=== PATIENT | female | born 1935 | race Caucasian/White ===

== ENCOUNTER 2017-08-16 11:02 | Inpatient (IN) ==
[2017-08-16] MEDS ORDERED: 0.9 % SODIUM CHLORIDE 2,000 ML IV ONE (11:39)
[2017-08-16] MEDS ORDERED: ACETAMINOPHEN 325 MG TABLET PO ONE (11:54)
--- NOTE | 2017-08-16 11:54 | Emergency Department Note ---
Nausea/Vomiting/Diarrhea HPI - General Chief complaint: Nausea/Vomiting/Diarrhea Stated complaint: N/V Time Seen by Provider: 08/16/17 11:08 Source: patient, family Mode of arrival: ambulatory Limitations: no limitations - History of Present Illness HPI Narrative: 82-year-old female presents for poor p.o. intake, dizziness, and vomiting. She has had nausea and vomiting for a while and had an upper endoscopy done on Friday. She thinks the nausea and vomiting is a little bit worse but she has not vomited today. She is also dizzy when she stands up and has fallen 3 times. She does not seem to have hurt herself. She is drinking to ensure drinks a day and 3 bottles of water that she can keep down. She also was having some diarrhea but was started on magnesium and that got better. She only has 1 stool a day that is loose. She is supposed to have a colonoscopy soon. She also had an ultrasound which showed a cyst on her left ovary. She states she has abdominal pain in the epigastric region. She has not had fever chills. Her blood pressure was low of 90/60 at home yet she still took her blood pressure medication for hypertension. She is seen at [facility] and sees Dr. Connors. She states the diarrhea is not worse. She states the dizziness is worse and did not know if she should wait until Friday or come in. 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 No urinary symptoms - Related Data Home Medications Medication Instructions Recorded Confirmed Ergocalciferol (Vitamin D2) 50,000 unit PO WEEKLY 08/16/17 08/16/17 [Vitamin D2] Lisinopril [Zestril] 20 mg PO DAILY 08/16/17 08/16/17 Metoprolol Succinate 25 mg PO DAILY 08/16/17 08/16/17 Omeprazole [PriLOSEC] 20 mg PO DAILY 08/16/17 08/16/17 Spironolactone [Aldactone] 25 mg PO DAILY 08/16/17 08/16/17 amLODIPine [Norvasc] 5 mg PO DAILY 08/16/17 08/16/17 Allergies Allergy/AdvReac Type Severity Reaction Status Date / Time No Known Drug Allergies Allergy Verified 12/02/17 11:03 Review of Systems All systems ED: reviewed and negative except as stated. 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 Absent: conjunctival injection Neck: Present: normal inspection, full ROM Chest: Present: normal inspection, symmetric chest wall rise Respiratory: Present: normal lung sounds bilaterally Cardiovascular: Present: regular rate, normal heart sounds Abdominal: Present: soft, tenderness, normal bowel sounds. Absent: distention, guarding, rebound Abdominal tenderness: Present: epigastrium Extremities: Present: normal inspection, full ROM Neurological: Present: alert, oriented X3 Psychiatric: Present: normal affect, normal mood Skin: Present: warm, dry, intact Course - Reevaluation(s) Reevaluation #1: Blood pressure is low but she is not symptomatic. She is hyponatremic at 118 so we slow down her fluids. She also was hypokalemic with recheck of 2.7 potassium. She will be given 20 mEq p.o. and 20 meq IV. Her brings her medications and it looks like she took 5 mg of amlodipine, 20 mg of lisinopril, 25 mg of metoprolol and 20 mg of her omeprazole this morning. This is likely contributing to her hypotension if she was already having low blood pressures. She is not tachycardic. She complains of headache she was given Tylenol which did not help with the headache we will try Toradol. I do not want to give her something to make her blood pressure lowers such as Dilaudid or morphine Vital Signs Temperature 97.6 F 08/16/17 11:04 Pulse Rate 94 H 08/16/17 11:04 Respiratory Rate 14 08/16/17 11:04 Blood Pressure 91/62 08/16/17 11:04 Pulse Oximetry (%) 100 08/16/17 11:04 Temperature 97.6 F 08/16/17 11:04 Pulse Rate 92 H 08/16/17 12:07 Respiratory Rate 14 08/16/17 11:04 Blood Pressure 110/57 08/16/17 12:07 Pulse Oximetry (%) 99 08/16/17 12:07 Nausea/Vomiting/Diarrhea - Medical Records Medical records reviewed: Yes I reviewed the patient's medical records. CT abdomen pelvis done on 07/14/17 shows complex cyst left ovary, diverticulosis , enteritis, inflammation in the stomach. Pelvic US done 08/13 shows Tubular serpiginous region of cystic abnormality left adnexa. More later there is a large cyst partially imaged AP diameter 3.3cm and a hyperechoic septation EGD shows Query celiac. Gastritis. Duodenal diverticuli. Bacterial overgrowth. - Lab Data Lab results reviewed: Yes I reviewed the patient's lab results. Result diagrams: 08/16/17 11:48 08/16/17 11:48 Lab Results 08/16/17 08/16/17 08/16/17 Range/Units 11:48 11:48 13:07 WBC 12.0 H (4.5-11.0) K/mcL RBC 3.76 L (4.00-5.20) M/mcL Hgb 12.2 (12.0-15.0) g/dL Hct 35.9 L (36.0-48.0) % POC Hct (36.0-48.0) % MCV 95.5 (80.0-100.0) fL MCH 32.5 (26.0-34.0) pg MCHC 34.0 (31.0-36.0) g/dL RDW 13.4 (11.5-14.5) % Plt Count 252 (140-440) K/mcL MPV 7.0 L (7.4-10.4) fL Total Counted 100 Seg Neutrophils % 87 H (38-78) % Band Neutrophils % 7 (0-10) % Lymphocytes % 4 L (15-49) % Monocytes % (Manual) 2 (1-12) % Platelet Estimate Normal (NORMAL) RBC Morphology Normal (NORMAL) POC Sodium (133-145) mmol/L Sodium 118 L* (133-145) mmol/L POC Potassium (3.3-5.1) mmol/L Potassium 3.0 L (3.3-5.1) mmol/L POC Chloride (96-108) mmol/L Chloride 79 L (96-108) mmol/L Carbon Dioxide 23 (22-30) mmol/L POC Total CO2 (22-30) mmol/L Anion Gap 16.0 (8-16) POC BUN (8-23) mg/dl BUN 20 (8-23) mg/dl Creatinine 0.7 (0.6-1.1) mg/dl POC Creatinine (0.6-1.1) mg/dl GFR Calculation 80 Glucose 112 H (70-105) mg/dL POC Glucose (70-105) mg/dL Calcium 7.9 L (8.6-10.4) mg/dl POC WB Ioniz Calcium (1.16-1.32) mmol/L Total Bilirubin 0.9 (0.0-1.0) mg/dL AST 32 (0-37) U/l ALT 20 (0-40) U/l Alkaline Phosphatase 125 H (39-117) U/L Total Protein 5.9 (5.9-8.4) gm/dL Albumin 2.5 L (3.2-5.2) gm/dL Globulin 3.4 (2.2-3.7) gm/dL Albumin/Globulin Ratio 0.7 L (1.0-2.3) Lipase 27 (7-60) U/L Urine Color Yellow Urine Appearance Clear Urine pH 6.0 (5.0-9.0) Ur Specific [place] 1.003 (1.000-1.035) Urine Protein Neg (NEG) mg/dL Urine Glucose (UA) Negative (NEG) mg/dL Urine Ketones Neg (NEG) mg/dL Urine Occult Blood Neg (<0.03) mg/dL Urine Nitrate Neg (NEG) Urine Bilirubin Neg (NEG) mg/dL Urine Urobilinogen Neg (NEG) mg/dL Ur Leukocyte Esterase 25 A (NEG) /uL Urine RBC 0 (0-1) /hpf Urine WBC 7 H (0-4) /hpf Ur Squamous Epith Cells 1 (0-4) /hpf Urine Bacteria Few A (0) /hpf Ur Culture Indicated? Yes 08/16/17 Range/Units 13:09 WBC (4.5-11.0) K/mcL RBC (4.00-5.20) M/mcL Hgb (12.0-15.0) g/dL Hct (36.0-48.0) % POC Hct 34.0 L (36.0-48.0) % MCV (80.0-100.0) fL MCH (26.0-34.0) pg MCHC (31.0-36.0) g/dL RDW (11.5-14.5) % Plt Count (140-440) K/mcL MPV (7.4-10.4) fL Total Counted Seg Neutrophils % (38-78) % Band Neutrophils % (0-10) % Lymphocytes % (15-49) % Monocytes % (Manual) (1-12) % Platelet Estimate (NORMAL) RBC Morphology (NORMAL) POC Sodium 122 L (133-145) mmol/L Sodium (133-145) mmol/L POC Potassium 2.7 L* (3.3-5.1) mmol/L Potassium (3.3-5.1) mmol/L POC Chloride 83 L (96-108) mmol/L Chloride (96-108) mmol/L Carbon Dioxide (22-30) mmol/L POC Total CO2 23 (22-30) mmol/L Anion Gap (8-16) POC BUN 17 (8-23) mg/dl BUN (8-23) mg/dl Creatinine (0.6-1.1) mg/dl POC Creatinine 0.7 (0.6-1.1) mg/dl GFR Calculation Glucose (70-105) mg/dL POC Glucose 92 (70-105) mg/dL Calcium (8.6-10.4) mg/dl POC WB Ioniz Calcium 0.96 L (1.16-1.32) mmol/L Total Bilirubin (0.0-1.0) mg/dL AST (0-37) U/l ALT (0-40) U/l Alkaline Phosphatase (39-117) U/L Total Protein (5.9-8.4) gm/dL Albumin (3.2-5.2) gm/dL Globulin (2.2-3.7) gm/dL Albumin/Globulin Ratio (1.0-2.3) Lipase (7-60) U/L Urine Color Urine Appearance Urine pH (5.0-9.0) Ur Specific [place] (1.000-1.035) Urine Protein (NEG) mg/dL Urine Glucose (UA) (NEG) mg/dL Urine Ketones (NEG) mg/dL Urine Occult Blood (<0.03) mg/dL Urine Nitrate (NEG) Urine Bilirubin (NEG) mg/dL Urine Urobilinogen (NEG) mg/dL Ur Leukocyte Esterase (NEG) /uL Urine RBC (0-1) /hpf Urine WBC (0-4) /hpf Ur Squamous Epith Cells (0-4) /hpf Urine Bacteria (0) /hpf Ur Culture Indicated? - Radiology Data Radiology results reviewed: Yes I reviewed the patient's radiology results. Disposition Pt seen by CUSTOMER SERVICE CORRESPONDENCE CLERK/PA only: No Clinical Impression: Hyponatremia, Hypokalemia, UTI (urinary tract infection), Hypotension Disposition: Xfer As Inpt ([facility]) Condition: Fair Referrals: Emerson Connors MD [Primary Care Provider] -
[2017-08-16 12:15] LABS: Mean Cell Volume 95.5 fL (80.0-100.0); Mean Corpuscular Hemoglobin 32.5 pg (26.0-34.0); Platelet Count 252 K/mcL (140-440); RBC 3.76 M/mcL (4.00-5.20); Red Cell Distribution Width 13.4 % (11.5-14.5)
[2017-08-16] MEDS ORDERED: ONDANSETRON 4 MG/2 ML VIAL IV ONE (12:16)
[2017-08-16] MEDS ORDERED: ONDANSETRON 4 MG/2 ML VIAL ONE (12:22)
[2017-08-16 12:46] LABS: Band Neutrophils % 7 % (0-10); Lymphocytes % 4 % (15-49); Monocytes % (Manual) 2 % (1-12); Platelet Estimate NORMAL (NORMAL); RBC Morphology NORMAL (NORMAL); Segmented Neutrophils % 87 % (38-78)
[2017-08-16 12:51] LABS: ALT/SGPT 20 U/l (0-40); Albumin 2.5 gm/dL (3.2-5.2); Albumin/Globulin Ratio 0.7 (1.0-2.3); Alkaline Phosphatase 125 U/L (39-117); Blood Urea Nitrogen 20 mg/dl (8-23); Lipase 27 U/L (7-60)
[2017-08-16] MEDS ORDERED: POTASSIUM CHLORIDE 20 MEQ TABLET PO ONE (13:15)
[2017-08-16] MEDS ORDERED: POTASSIUM PHOSPHATE 20 MEQ in DEXTROSE 5% IN WATER 250 ML IV ONE (13:27)
[2017-08-16 13:32] LABS: Appearance,Urine CLEAR; Bacteria,Urine FEW /hpf (0); Bilirubin,Urine NEG (NEG); Color,Urine YELLOW; Glucose,Urine (UA) NEGATIVE (NEG); Leukocyte Esterase,Urine 25 /uL (NEG); Nitrate,Urine NEG (NEG); Protein,Urine NEG (NEG); Specific Gravity,Urine 1.003 (1.000-1.035); Urine Blood NEG mg/dL (<0.03); Urine RBC 0 /hpf (0-1); Urine Squamous Epithelial Cell 1 /hpf (0-4); Urine WBC 7 /hpf (0-4); Urobilinogen,Urine NEG (NEG)
[2017-08-16] MEDS ORDERED: 0.9 % SODIUM CHLORIDE 1,000 ML IV SCH (13:45)
[2017-08-16] MEDS: KETOROLAC 30 MG/ML VIAL IV ONE ×2 (14:06→15:34)
[2017-08-16] MEDS ORDERED: cefTRIAXone 1 GM VIAL IV ONE (14:19)
--- NOTE | 2017-08-16 15:04 | XRay Report ---
CLINICAL INFORMATION: Hyponatremia COMPARISON: None. FINDINGS: The heart is borderline enlarged. Mediastinum and pulmonary vasculature are unremarkable. Lungs are clear. No effusions IMPRESSION: No acute disease Interpreted and Authenticated by: Keny Kraus 08/16/17
[2017-08-16] MEDS ORDERED: PHENobarb/HYOSCY/ATROPINE/SCOP 1 DOSE BOTTLE PO ONE (15:09)
--- NOTE | 2017-08-16 15:25 | Internal Med History&Physical ---
Medical - H&P: HPI Patient information: Note initiated : 08/16/17 at 3:21 pm Service Date, if different from initiated Date: [] Patient: Eugenia Barboza 82 y/o F admitted on for N/V. Chief Complaint: [] History of present illness: Ms. Barboza is a 82 year old female who reportedly has recent issues with nausea and vomiting and abdominal discomfort. She underwent an upper endoscopy a few days ago, which found gastritis and bacterial overgrowth. There was a question of possible celiac disease, but biopsy show only active duodenitis and chronic gastritis, negative for H. pylori or signs of celiac disease. She has had nausea and vomiting and dizziness for the last several days, and has had several falls. Her notes that she has been having problems with diarrhea for several months. He says her primary care doctor and her GI doctor have run numerous tests without a definite answer. Over the last several weeks she has also developed abdominal pain and intermittent nausea and vomiting. She had an endoscopy a few days ago, which showed gastritis and duodenitis. Her says she has actually gotten worse since then, and has had progressive weakness, loss of appetite, and has fallen several times due to being weak when she stands up. The patient says she just feels off balance when she stands. Her notes she has been complaining of feeling cold lately which is much worse than usual. She has had some intermittent headaches. She has an occasional cough, which is nonproductive. Otherwise she denies fevers, overt dizziness, new eye or ear symptoms, sore throat, swollen glands, chest pain or palpitations, shortness of breath or wheezing. She reports intermittent lower abdominal discomfort along with the nausea and vomiting. She says she has not had much diarrhea recently. She denies rectal bleeding or dysuria. Her notes that she has had what was described as severe hypertension for many many years. She has been hospitalized for this in the past, and he says specialist to run numerous test but never really sorted out the cause. Says she also has had trouble with hyponatremia for years, and they have never found a definite cause for that either. [facility] her reports she has lost about 30 pounds over the last couple of years. ER evaluation showed initial blood pressure of 80/60, hyponatremia, hypokalemia , leukocytosis, abnormal urinalysis. Past medical history: Hypertension severe gastritis and duodenitis History of reflux esophageal dilation. History of sinus problems History of hyponatremia and hypomagnesemia Past surgical history includes cholecystectomy. Current medications: Norvasc 5 mg daily Vitamin D 50,000 units weekly Lisinopril 20 mg daily Metoprolol 25 mg daily Omeprazole 20 mg daily Spironolactone 25 mg daily Records from an outpatient clinic indicate loperamide 2 mg 2 caps as needed loose stool. Magnesium SR 84 mg 2 tabs daily twice daily Flonase nasal spray 2 sprays each nostril daily Atrovent nasal spray 2 sprays each nostril 3 times daily as needed [place] DM 5-10 mils every 4 hours as needed cough Allergies: No known drug allergies Family history: Other in her 90s and had a history of some GI problems. Father in his 90s but health was unknown. She has half siblings but their health is unknown. Social history: She is and lives with her . Her children live in [facility]. She does not use tobacco or drugs. She does drink alcohol most days, generally 1 glass of wine or one gin and tonic either with dinner or when playing golf. Medical - H&P: Meds Home Medications Medication Instructions Recorded Confirmed Type Ergocalciferol (Vitamin D2) 50,000 unit PO WEEKLY 08/16/17 08/16/17 History [Vitamin D2] Lisinopril [Zestril] 20 mg PO DAILY 08/16/17 08/16/17 History Metoprolol Succinate 25 mg PO DAILY 08/16/17 08/16/17 History Omeprazole [PriLOSEC] 20 mg PO DAILY 08/16/17 08/16/17 History Spironolactone [Aldactone] 25 mg PO DAILY 08/16/17 08/16/17 History amLODIPine [Norvasc] 5 mg PO DAILY 08/16/17 08/16/17 History Allergies Allergy/AdvReac Type Severity Reaction Status Date / Time No Known Drug Allergies Allergy Verified 08/16/17 11:03 Medical - H&P: Exam - Constitutional Vitals: Temp Pulse Resp BP Pulse Ox 97.6 F 92 H 14 110/57 99 08/16/17 11:04 08/16/17 12:07 08/16/17 11:04 08/16/17 12:07 08/16/17 12:07 Blood pressure is ranging from 92-105/54-62 She is an elderly female, lying in bed. She appears fatigued, but is otherwise in no acute distress. Head: Normocephalic and atraumatic. Ears: Canals are clear. Left TM has an old perforation. Right TM is clear. Eyes: PERRLA, EOMI, anicteric. Pharynx: Pharynx is clear, mucosa is normal. Patient has partial upper and lower plates. Teeth are in fair condition. Neck: Is supple, without obvious lymphadenopathy, JVD, thyromegaly, bruits. Cardiac exam: Shows regular rate and rhythm with normal S1 and S2. She is a soft systolic murmur heard at the left lower sternal border, but no rubs or gallops are noted. Lungs: Clear to auscultation, without rales, rhonchi, wheezes. Abdomen: Soft, without obvious masses or tenderness. Bowel sounds are active. There is no guarding or rebound. Extremities: No cyanosis, clubbing, edema. Pulses are intact. Neurologic: Patient is alert and oriented, although she is a little slow to answer questions. Her notes her hearing it has been declining recently. Otherwise her exam is grossly nonfocal. Medical - H&P: Reslt - Labs CBC & Chem 7: 08/16/17 11:48 08/16/17 11:48 Labs: Short CBC 08/16/17 Range/Units 11:48 WBC 12.0 H (4.5-11.0) K/mcL Hgb 12.2 (12.0-15.0) g/dL Hct 35.9 L (36.0-48.0) % Plt Count 252 (140-440) K/mcL BMP 08/16/17 11:48 Sodium 118 L* Potassium 3.0 L Chloride 79 L Carbon Dioxide 23 BUN 20 Creatinine 0.7 Glucose 112 H Calcium 7.9 L Liver Function 08/16/17 Range/Units 11:48 Total Bilirubin 0.9 (0.0-1.0) mg/dL AST 32 (0-37) U/l ALT 20 (0-40) U/l Alkaline Phosphatase 125 H (39-117) U/L Albumin 2.5 L (3.2-5.2) gm/dL Urine 08/16/17 Range/Units 13:07 Urine Color Yellow Urine Appearance Clear Urine pH 6.0 (5.0-9.0) Ur Specific [place] 1.003 (1.000-1.035) Urine Protein Neg (NEG) mg/dL Urine Glucose (UA) Negative (NEG) mg/dL August 16: Urinalysis shows pH of 6, 25 leukocyte esterase, 7 white blood cells, few bacteria. Culture is pending. Lactic acid: Is normal at 0.7 Chest x-ray: FINDINGS: The heart is borderline enlarged. Mediastinum and pulmonary vasculature are unremarkable. Lungs are clear. No effusions.IMPRESSION: No acute disease CT abdomen pelvis done on 07/14/17 shows complex cyst left ovary, diverticulosis , enteritis, inflammation in the stomach. Pelvic US done 08/13 shows Tubular serpiginous region of cystic abnormality left adnexa. More later there is a large cyst partially imaged AP diameter 3.3cm and a hyperechoic septation EGD shows Query celiac. Gastritis. Duodenal diverticuli. Bacterial overgrowth. Medical - H&P: A/P (1) Dehydration Current visit: Yes Status: Acute (2) Nausea and vomiting in adult Current visit: Yes Status: Acute (3) Pyuria Current visit: Yes Status: Acute (4) Hypotension Current visit: Yes Status: Acute (5) Gastritis and duodenitis Current visit: Yes Status: Chronic (6) Hyponatremia Current visit: Yes Status: Acute (7) Hypokalemia Current visit: Yes Status: Acute - Narrative A/P Narrative: #1. Cardiac. Patient presents with dizziness, falls, hypotension, electrolyte abnormalities. It would appear that her hypotension is at least partly due to her blood pressure medications, in the setting of ongoing nausea and vomiting and dehydration. -Admit to telemetry for closer monitoring. -IV fluids, correct electrolytes. Hypertension. Currently hypotensive, hold blood pressure medications for now. Test with the patient and her that if she is having ongoing diarrhea, weight loss, poor p.o. intake, she probably should not be taking all of her blood pressure medications. I advised her to try checking her blood pressure prior to taking her morning meds, and then at least get the diuretic if her blood pressure is low, or call her regular doctor for advice. 2. GI. She has ongoing GI symptoms. She is under the care of Dr. Green as an outpatient. EGD showed both gastritis and duodenitis. -Change oral to IV PPI. 3. Endocrine. Patient presents with hyponatremia, hypokalemia, hypochloremia, all possibly due to medications and ongoing vomiting issues. -Check spot urine sodium. Sounds like the hyponatremia is at least to some degree chronic. -IV fluids. 4. CODE STATUS: Code. will act as her POA. 5. DVT prophylaxis: Subcu heparin. #6. Infectious disease. Urinalysis is mildly abnormal. Cover with Rocephin for possible UTI pending cultures. Today's visit took approximately 60 minutes, to review her case with the ER MD, review her test results, interview and examine her, review plan of care with the patient and her , and write orders.
[2017-08-16] MEDS ORDERED: ONDANSETRON 4 MG/2 ML VIAL IV PRN (17:02)
[2017-08-16] MEDS ORDERED: ALBUTEROL SULFATE 2.5 MG/3 ML NEBULIZER NEB PRN (17:02)
[2017-08-16] MEDS ORDERED: MAGNESIUM HYDROXIDE 30 ML ORAL.SUSP PO PRN (17:02)
[2017-08-16] MEDS ORDERED: DOCUSATE SODIUM 100 MG CAPSULE PO PRN (17:02)
[2017-08-16] MEDS: [UNRECOGNIZED DRUG - OTHER] IV SCH (18:58)
[2017-08-16] MEDS: POTASSIUM CHLORIDE IV SCH (18:58)
[2017-08-16] MEDS: DEXTROSE 5% IV SCH (18:58)
[2017-08-16] MEDS ORDERED: POTASSIUM CHLORIDE 20 MEQ/10 ML VIAL IV ONE (19:02)
[2017-08-16] MEDS: PANTOPRAZOLE 40 MG VIAL IV SCH (19:02)
[2017-08-16 19:36] LABS: Ionized Calcium 0.94 mmol/L (1.16-1.32)
[2017-08-16 19:47] LABS: Blood Urea Nitrogen 17 mg/dl (8-23)
[2017-08-16] MEDS: HEPARIN 5,000 UNIT/ML VIAL SQ SCH (20:50)
[2017-08-16] MEDS: ACETAMINOPHEN 325 MG TABLET PO PRN (20:53)
[2017-08-16] MEDS ORDERED: LORazepam 0.5 MG TABLET PO PRN (21:40)
[2017-08-16] MEDS ORDERED: LORazepam 0.5 MG TABLET ONE (22:03)
[2017-08-17] MEDS: POTASSIUM CHLORIDE IV SCH ×4 (02:53→21:14)
[2017-08-17] MEDS: DEXTROSE 5% IV SCH ×4 (02:53→21:14)
[2017-08-17] MEDS: [UNRECOGNIZED DRUG - OTHER] IV SCH ×4 (02:53→21:14)
[2017-08-17] MEDS ORDERED: POTASSIUM CHLORIDE 20 MEQ/10 ML VIAL IV ONE (02:54)
[2017-08-17 06:34] LABS: Basophils # (Auto) 0 K/mcL (0.0-0.3); Basophils % (Auto) 0 % (0.0-2.0); Eosinophils # (Auto) 0 K/mcL (0.0-0.7); Eosinophils % (Auto) 0 % (0.0-7.0); Granulocytes % (Auto) 93.6 % (38.0-78.0); Lymphocytes # (Auto) 0.2 K/mcL (1.5-4.8); Lymphocytes % (Auto) 1.8 % (15.5-49.0); Mean Cell Volume 95.1 fL (80.0-100.0); Mean Corpuscular HGB Conc 33.9 g/dL (31.0-36.0); Mean Corpuscular Hemoglobin 32.3 pg (26.0-34.0); Monocytes # (Auto) 0.4 K/mcL (0.1-0.9); Monocytes % (Auto) 4.6 % (1.0-12.0); Platelet Count 209 K/mcL (140-440); RBC 2.95 M/mcL (4.00-5.20); Red Cell Distribution Width 14.2 % (11.5-14.5)
[2017-08-17 06:49] LABS: ALT/SGPT 13 U/l (0-40); Albumin 1.9 gm/dL (3.2-5.2); Albumin/Globulin Ratio 0.8 (1.0-2.3); Alkaline Phosphatase 106 U/L (39-117); Bilirubin,Direct < 0.2 mg/dL (0.0-0.3); Blood Urea Nitrogen 15 mg/dl (8-23); Gamma Glutamyl Transpeptidase 46 U/L (5-36); Magnesium 1.2 mg/dL (1.6-2.5); Uric Acid 2.8 mg/dL (2.5-8.0)
[2017-08-17] MEDS ORDERED: MAGNESIUM SULFATE 32.48 MEQ in DEXTROSE 5% IN WATER 100 ML IV ONE (07:42)
[2017-08-17] MEDS ORDERED: METOPROLOL SUCCINATE 25 MG TAB.XL.24H PO SCH (09:00)
[2017-08-17] MEDS: cefTRIAXone 1 GM VIAL IV SCH (09:09)
[2017-08-17] MEDS: PANTOPRAZOLE 40 MG VIAL IV SCH ×2 (09:09→17:58)
[2017-08-17] MEDS: CALCIUM W/VIT D3 500 MG TABLET PO SCH ×2 (09:10→19:37)
[2017-08-17] MEDS: HEPARIN 5,000 UNIT/ML VIAL SQ SCH ×2 (09:10→19:37)
[2017-08-17] MEDS: METOPROLOL SUCCINATE 25 MG TAB.XL.24H PO SCH (09:10)
[2017-08-17 11:17] LABS: Vitamin D 25 Hydroxy 25.46 ng/mL (>=30)
--- NOTE | 2017-08-17 11:31 | Internal Med Progress Note ---
Medical - PN: Subj Patient information: Note initiated : 08/17/17 at 11:31 am Service Date, if different from initiated Date: [] Patient: Eugenia Barboza 82 y/o F admitted on 08/16/17 for N/V. Chief Complaint: [] Interval history: August 16, 2017: History of present illness: Ms. Barboza is a 82 year old female who reportedly has recent issues with nausea and vomiting and abdominal discomfort. She underwent an upper endoscopy a few days ago, which found gastritis and bacterial overgrowth. There was a question of possible celiac disease, but biopsy show only active duodenitis and chronic gastritis, negative for H. pylori or signs of celiac disease. She has had nausea and vomiting and dizziness for the last several days, and has had several falls. Her notes that she has been having problems with diarrhea for several months. He says her primary care doctor and her GI doctor have run numerous tests without a definite answer. Over the last several weeks she has also developed abdominal pain and intermittent nausea and vomiting. She had an endoscopy a few days ago, which showed gastritis and duodenitis. Her says she has actually gotten worse since then, and has had progressive weakness, loss of appetite, and has fallen several times due to being weak when she stands up. The patient says she just feels off balance when she stands. Her notes she has been complaining of feeling cold lately which is much worse than usual. She has had some intermittent headaches. She has an occasional cough, which is nonproductive. Otherwise she denies fevers, overt dizziness, new eye or ear symptoms, sore throat, swollen glands, chest pain or palpitations, shortness of breath or wheezing. She reports intermittent lower abdominal discomfort along with the nausea and vomiting. She says she has not had much diarrhea recently. She denies rectal bleeding or dysuria. Her notes that she has had what was described as severe hypertension for many many years. She has been hospitalized for this in the past, and he says specialist to run numerous test but never really sorted out the cause. Says she also has had trouble with hyponatremia for years, and they have never found a definite cause for that either. [place] her reports she has lost about 30 pounds over the last couple of years. ER evaluation showed initial blood pressure of 80/60, hyponatremia, hypokalemia , leukocytosis, abnormal urinalysis. August 3: Overnight, the patient remained fairly stable. Her blood pressure continues to run rather low. She reports she still quite fatigued, and still has lower abdominal discomfort, but these are symptoms that have been going on for quite some time. She did sit up in a chair today without significant dizziness. She otherwise denies fever chills, headaches or dizziness, chest pain or palpitations, shortness of breath, nausea or vomiting, diarrhea or constipation or dysuria. Lab did call today to say 1 bottle of her blood cultures is growing gram- positive cocci. - Constitutional Vitals: Vital Signs Temp Pulse Resp BP Pulse Ox 99.4 F H 85 14 105/56 99 08/17/17 11:29 08/17/17 11:29 08/17/17 11:29 08/17/17 11:29 08/17/17 11:29 Period Temp Pulse Resp BP Sys/Parks Pulse Ox Last 24 Hr 97.2 F-99.4 F 79-97 13-20 72-113/40-66 95-100 Intake and Output 08/16/17 08/17/17 08/17/17 21:59 05:59 13:59 Intake Total 1254.5455 / 1254.5455 1350 / 1350 Output Total 600 / 600 Balance 1254.5455 / 1254.5455 750 / 750 Weight 111 lb 4.8 oz Intake & Output: Intake & Output 08/16/17 08/17/17 08/17/17 21:59 05:59 13:59 Intake Total 1254.5455 / 1254.5455 1350 / 1350 Output Total 600 / 600 Balance 1254.5455 / 1254.5455 750 / 750 Weight 111 lb 4.8 oz Intake: IV 1254.5455 / 1254.5455 990 / 990 Sodium Chloride 0.9% 1,000 ml @ 1000 / 1000 100 mls/hr IV .Q10H [facility] Rx#: [id number] Potassium Chloride 30 Meq In 990 / 990 Dextrose 5%-Ns IV Solution 1, 000 ml @ 125 mls/hr IV .Q8H8M [facility] Rx#:[id number] Potassium Phosphate 20 Meq In 254.5455 / 254.5455 Dextrose 5% in Water 250 ml @ 127.273 mls/hr IV ONCE ONE Rx#: [id number] Oral 360 / 360 Output: Void Amount 275 / 275 Urine/Stool Mix 325 / 325 On exam, the patient is awake and alert. She does appear fatigued. Neck is supple without obvious lymphadenopathy or JVD. Cardiac exam shows regular rate and rhythm. [place] lungs are clear to auscultation. Abdomen is soft, with mild discomfort in the right lower quadrant.. Bowel sounds are active. Extremities show no edema. However, her legs were extremely tender to touch today, for uncertain reasons. She states that just happens sometimes. [place] neurologic exam is grossly nonfocal. Medical - PN: Obj Da - Labs CBC & Chem 7: 08/17/17 03:35 08/17/17 03:35 Labs: Abnormal Lab Results 08/17/17 08/17/17 08/17/17 09:48 03:35 03:35 WBC RBC 2.95 L Hgb 9.5 L Hct 28.1 L POC Hct MPV Gran % 93.6 H Lymph % (Auto) 1.8 L Gran # 8.8 H Lymph # (Auto) 0.2 L Seg Neutrophils % Lymphocytes % POC Sodium Sodium 125 L POC Potassium Potassium POC Chloride Chloride 92 L Carbon Dioxide 21 L Glucose 144 H Calcium 6.8 L POC WB Ioniz Calcium Ionized Calcium [place] Phosphorus 2.2 L Magnesium 1.2 L GGT 46 H Alkaline Phosphatase Total Protein 4.4 L Albumin 1.9 L Albumin/Globulin Ratio 0.8 L Triglycerides 178 H 25-OH Vitamin D Total 25.46 L Ur Leukocyte Esterase Urine WBC Urine Bacteria 08/16/17 08/16/17 08/16/17 18:50 13:09 13:07 WBC RBC Hgb Hct POC Hct 34.0 L MPV Gran % Lymph % (Auto) Gran # Lymph # (Auto) Seg Neutrophils % Lymphocytes % POC Sodium 122 L Sodium 122 L POC Potassium 2.7 L* Potassium POC Chloride 83 L Chloride 87 L Carbon Dioxide 21 L Glucose 109 H Calcium POC WB Ioniz Calcium 0.96 L Ionized Calcium Sonam 0.94 L Phosphorus Magnesium GGT Alkaline Phosphatase Total Protein Albumin Albumin/Globulin Ratio Triglycerides 25-OH Vitamin D Total Ur Leukocyte Esterase 25 A Urine WBC 7 H Urine Bacteria Few A 08/16/17 08/16/17 11:48 11:48 WBC 12.0 H RBC 3.76 L Hgb Hct 35.9 L POC Hct MPV 7.0 L Gran % Lymph % (Auto) Gran # Lymph # (Auto) Seg Neutrophils % 87 H Lymphocytes % 4 L POC Sodium Sodium 118 L* POC Potassium Potassium 3.0 L POC Chloride Chloride 79 L Carbon Dioxide Glucose 112 H Calcium 7.9 L POC WB Ioniz Calcium Ionized Calcium Sonam Phosphorus Magnesium GGT Alkaline Phosphatase 125 H Total Protein Albumin 2.5 L Albumin/Globulin Ratio 0.7 L Triglycerides 25-OH Vitamin D Total Ur Leukocyte Esterase Urine WBC Urine Bacteria August 16: Urinalysis shows pH of 6, 25 leukocyte esterase, 7 white blood cells, few bacteria. Culture is pending. Lactic acid: Is normal at 0.7 Chest x-ray: FINDINGS: The heart is borderline enlarged. Mediastinum and pulmonary vasculature are unremarkable. Lungs are clear. No effusions.IMPRESSION: No acute disease CT abdomen pelvis done on 07/14/17 shows complex cyst left ovary, diverticulosis , enteritis, inflammation in the stomach. Pelvic US done 08/13 shows Tubular serpiginous region of cystic abnormality left adnexa. More later there is a large cyst partially imaged AP diameter 3.3cm and a hyperechoic septation EGD shows Query celiac. Gastritis. Duodenal diverticuli. Bacterial overgrowth. Meds: Medications Acetaminophen (Tylenol) 650 mg PO Q6HP PRN PRN Reason: PAIN/FEVER > 101 Last Admin: 08/16/17 20:53 Dose: 650 mg Albuterol Sulfate (Ventolin) 2.5 mg NEB Q4HRT PRN PRN Reason: Shortness Of Breath Or Wheezing Calcium/Vitamin D (Calcium W/Vit D3) 500 mg PO BID [facility] Last Admin: 08/17/17 09:10 Dose: 500 mg Ceftriaxone Sodium (Rocephin) 1 gm IV DAILY [facility] Last Admin: 08/17/17 09:09 Dose: 1 gm Docusate Sodium (Colace) 100 mg PO BID PRN PRN Reason: Constipation Heparin Sodium (Porcine) (Heparin) 5,000 unit SQ Q12 [facility] Last Admin: 08/17/17 09:10 Dose: 5,000 unit Potassium Chloride 30 meq/ (Dextrose/Sodium Chloride) 1,015 mls @ 125 mls/hr IV .Q8H8M [facility] Last Admin: 08/17/17 02:53 Dose: 125 mls/hr Lorazepam (Ativan) 0.5 mg PO HSP PRN PRN Reason: ANXIETY/SEDATION Last Admin: 08/16/17 21:56 Dose: 0.5 mg Magnesium Hydroxide (Milk Of Magnesia) 30 ml PO DAILYP PRN PRN Reason: Constipation Metoprolol Succinate (Toprol Xl) 25 mg PO DAILY [facility] Last Admin: 08/17/17 09:10 Dose: Not Given Ondansetron HCl (Zofran) 4 mg IV Q4HP PRN PRN Reason: Nausea And Vomiting Pantoprazole Sodium (Protonix) 40 mg IV BIDAC [facility] Last Admin: 08/17/17 09:09 Dose: 40 mg Potassium/Phosphorus/Sodium (Neutra Phos) 2 packet PO QNOON [facility] Medical - PN: A/P - Time Spent With Patient Total time spent is greater than 50% in coordination of care (as documented) at patient's floor/unit and/or counseling patient: 25 - 35 minutes (1) Dehydration Status: Acute Current Visit: Yes (2) Nausea and vomiting in adult Status: Acute Current Visit: Yes (3) Pyuria Status: Acute Current Visit: Yes (4) Hypotension Status: Acute Current Visit: Yes (5) Gastritis and duodenitis Status: Chronic Current Visit: Yes (6) Hyponatremia Status: Acute Current Visit: Yes (7) Hypokalemia Status: Acute Current Visit: Yes - Narrative A/P Narrative: #1. Cardiac. -Patient presents with dizziness, falls, hypotension, electrolyte abnormalities. It would appear that her hypotension is at least partly due to her blood pressure medications, in the setting of ongoing nausea and vomiting and dehydration. She continues on IV fluids, but blood pressure remains fairly low. I expect she is chronically dehydrated. We will need to replace sodium, calcium, phosphorus, magnesium. -Hypertension. Currently hypotensive, hold blood pressure medications for now. Test with the patient and her that if she is having ongoing diarrhea, weight loss, poor p.o. intake, she probably should not be taking all of her blood pressure medications. I advised her to try checking her blood pressure prior to taking her morning meds, and then at least get the diuretic if her blood pressure is low, or call her regular doctor for advice. 2. GI. She has ongoing GI symptoms. She is under the care of Dr. Green as an outpatient. EGD showed both gastritis and duodenitis. -Change oral to IV PPI. -Hemoglobin is lower today, and her baseline appears closer to 10.5. She reports that Dr. Green plans on doing a colonoscopy soon as well. It is unclear if she could have a subacute GI bleed, or if this is more a chronic nutritional issue. [place] all stools. Continue to monitor. -Nutrition consult. 3. Endocrine. Patient presents with hyponatremia, hypokalemia, hypochloremia, all possibly due to medications and ongoing vomiting issues. -Urine sodium was low, and hyponatremia is improving with IV fluids. Continue same. -Replace electrolytes and minerals as indicated. -Vitamin D is borderline low. Replace calcium and vitamin D orally. 4. CODE STATUS: Code. will act as her POA. 5. DVT prophylaxis: Subcu heparin. #6. Infectious disease. Urinalysis is mildly abnormal. Cover with Rocephin for possible UTI pending cultures. -One bottle of blood cultures is positive, and we will await ID to see whether or not this appears to be a contaminant. She has only a low-grade fever, and white blood cell count is back to normal. It might be worthwhile getting an echocardiogram given her relative hypotension and to look for signs of vegetations. Medical - PN: Qual - VTE Deep Vein Thrombosis/Pulmonary Embolism Present on Admission: No
[2017-08-17] MEDS: NEUTRA PHOS 1 PACKET PO SCH (13:27)
[2017-08-17] MEDS: ACETAMINOPHEN 325 MG TABLET PO PRN (15:52)
[2017-08-17] MEDS ORDERED: VANCOMYCIN PER PHARMACY IV ONE (21:13)
[2017-08-17] MEDS ORDERED: VANCOMYCIN 1,000 MG in 0.9 % SODIUM CHLORIDE 250 ML IV ONE (21:45)
[2017-08-17] MEDS ORDERED: VANCOMYCIN 750 MG in 0.9 % SODIUM CHLORIDE 250 ML IV ONE (22:00)
[2017-08-17] MEDS ORDERED: VANCOMYCIN 500 MG VIAL ONE (22:10)
[2017-08-18] MEDS: POTASSIUM CHLORIDE IV SCH ×3 (03:01→16:49)
[2017-08-18] MEDS: [UNRECOGNIZED DRUG - OTHER] IV SCH ×3 (03:01→16:49)
[2017-08-18] MEDS: DEXTROSE 5% IV SCH ×3 (03:01→16:49)
[2017-08-18 04:59] LABS: Basophils # (Auto) 0 K/mcL (0.0-0.3); Basophils % (Auto) 0 % (0.0-2.0); Eosinophils # (Auto) 0.1 K/mcL (0.0-0.7); Granulocytes % (Auto) 87.1 % (38.0-78.0); Lymphocytes # (Auto) 0.5 K/mcL (1.5-4.8); Lymphocytes % (Auto) 6.3 % (15.5-49.0); Mean Cell Volume 96.9 fL (80.0-100.0); Mean Corpuscular HGB Conc 33.6 g/dL (31.0-36.0); Mean Corpuscular Hemoglobin 32.5 pg (26.0-34.0); Monocytes # (Auto) 0.4 K/mcL (0.1-0.9); Monocytes % (Auto) 5.6 % (1.0-12.0); Platelet Count 252 K/mcL (140-440); RBC 2.95 M/mcL (4.00-5.20); Red Cell Distribution Width 13.8 % (11.5-14.5)
[2017-08-18 05:05] LABS: ALT/SGPT 13 U/l (0-40); Albumin 1.8 gm/dL (3.2-5.2); Albumin/Globulin Ratio 0.7 (1.0-2.3); Alkaline Phosphatase 95 U/L (39-117); Bilirubin,Direct < 0.2 mg/dL (0.0-0.3); Blood Urea Nitrogen 5 mg/dl (8-23); Gamma Glutamyl Transpeptidase 44 U/L (5-36); Magnesium 2.1 mg/dL (1.6-2.5)
[2017-08-18] MEDS ORDERED: VANCOMYCIN PER PHARMACY IV SCH (06:45)
[2017-08-18] MEDS: PANTOPRAZOLE 40 MG VIAL IV SCH ×2 (07:07→16:40)
[2017-08-18] MEDS: cefTRIAXone 1 GM VIAL IV SCH (10:02)
[2017-08-18] MEDS: CALCIUM W/VIT D3 500 MG TABLET PO SCH ×2 (10:02→20:48)
[2017-08-18] MEDS: VITAMIN D3 1,000 UNIT TABLET PO SCH ×2 (10:02→20:48)
[2017-08-18] MEDS: HEPARIN 5,000 UNIT/ML VIAL SQ SCH ×2 (10:02→20:47)
[2017-08-18] MEDS: METOPROLOL SUCCINATE 25 MG TAB.XL.24H PO SCH (10:04)
--- NOTE | 2017-08-18 10:24 | Internal Med Progress Note ---
Medical - PN: Subj Patient information: Note initiated : 08/18/17 at 10:24 am Service Date, if different from initiated Date: [] Patient: Eugenia Barboza 82 y/o F admitted on 08/16/17 for N/V. Chief Complaint: [] Interval history: August 16, 2017: History of present illness: Ms. Barboza is a 82 year old female who reportedly has recent issues with nausea and vomiting and abdominal discomfort. She underwent an upper endoscopy a few days ago, which found gastritis and bacterial overgrowth. There was a question of possible celiac disease, but biopsy show only active duodenitis and chronic gastritis, negative for H. pylori or signs of celiac disease. She has had nausea and vomiting and dizziness for the last several days, and has had several falls. Her notes that she has been having problems with diarrhea for several months. He says her primary care doctor and her GI doctor have run numerous tests without a definite answer. Over the last several weeks she has also developed abdominal pain and intermittent nausea and vomiting. She had an endoscopy a few days ago, which showed gastritis and duodenitis. Her says she has actually gotten worse since then, and has had progressive weakness, loss of appetite, and has fallen several times due to being weak when she stands up. The patient says she just feels off balance when she stands. Her notes she has been complaining of feeling cold lately which is much worse than usual. She has had some intermittent headaches. She has an occasional cough, which is nonproductive. Otherwise she denies fevers, overt dizziness, new eye or ear symptoms, sore throat, swollen glands, chest pain or palpitations, shortness of breath or wheezing. She reports intermittent lower abdominal discomfort along with the nausea and vomiting. She says she has not had much diarrhea recently. She denies rectal bleeding or dysuria. Her notes that she has had what was described as severe hypertension for many many years. She has been hospitalized for this in the past, and he says specialist to run numerous test but never really sorted out the cause. Says she also has had trouble with hyponatremia for years, and they have never found a definite cause for that either. [place] her reports she has lost about 30 pounds over the last couple of years. ER evaluation showed initial blood pressure of 80/60, hyponatremia, hypokalemia , leukocytosis, abnormal urinalysis. August 17: Overnight, the patient remained fairly stable. Her blood pressure continues to run rather low. She reports she still quite fatigued, and still has lower abdominal discomfort, but these are symptoms that have been going on for quite some time. She did sit up in a chair today without significant dizziness. She otherwise denies fever chills, headaches or dizziness, chest pain or palpitations, shortness of breath, nausea or vomiting, diarrhea or constipation or dysuria. Lab did call today to say 1 bottle of her blood cultures is growing gram- positive cocci. August 18: Today, the patient's blood cultures are growing gram-positive cocci, and gram- negative and gram-positive rods. Urine is growing Klebsiella. T-max was 99.4 last night. White blood cell count returned to normal just on IV Rocephin. Vancomycin was added last night because of the gram positives in her blood. The patient continues to deny fever or significant chills, though she is often cold. She says she is feeling quite a bit better today, and tolerated [place] toast for breakfast. She denies significant sinus symptoms, other than occasional sinus congestion. She does not report toothache or earache or swollen glands. She denies significant cough or shortness of breath. She has not had further nausea or vomiting, and has not had any stool at all today, let alone diarrhea. She denies dysuria. We have been correcting her numerous lab abnormalities with oral calcium and phosphorus replacement, as well as IV magnesium and potassium and sodium. Spironolactone is on hold due to probable severe dehydration, which is likely secondary to chronic diarrhea. 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 The patient reports she has lost 30 pounds over the last year, unintentionally. - Constitutional Vitals: Vital Signs Temp Pulse Resp BP Pulse Ox 98.6 F 80 16 112/67 100 08/18/17 08:00 08/18/17 08:00 08/18/17 08:00 08/18/17 08:00 08/18/17 08:00 Period Temp Pulse Resp BP Sys/Parks Pulse Ox Last 24 Hr 98.2 F-99.4 F 74-102 14-18 103-115/55-67 98-100 Intake and Output 08/17/17 08/18/17 08/18/17 21:59 05:59 13:59 Intake Total 1974 1025 / 1025 Output Total 525 / 525 1150 / 1150 200 / 200 Balance 1450 / 1450 -125 / -125 -200 / -200 Weight 116 lb Intake & Output: Intake & Output 08/17/17 08/18/17 08/18/17 21:59 05:59 13:59 Intake Total 1974 1025 / 1025 Output Total 525 / 525 1150 / 1150 200 / 200 Balance 1450 / 1450 -125 / -125 -200 / -200 Weight 116 lb Intake: IV 1015 / 1015 250 / 250 Potassium Chloride 30 Meq In 1015 / 1015 Dextrose 5%-Ns IV Solution 1, 000 ml @ 125 mls/hr IV .Q8H8M [facility] Rx#:[id number] Oral 960 / 960 775 / 775 Output: Void Amount 525 / 525 1150 / 1150 200 / 200 Other: Meal Lunch Percent of Meal Consumed bites On exam, the patient is awake and alert. She appears brighter today, and more energetic. She did walk in the [place] today with a walker, and says she felt less weak than before. Next line blood pressure has finally come up to 125/63, which her has had was close to her baseline. Neck is supple without obvious lymphadenopathy or JVD. Cardiac exam shows regular rate and rhythm. lungs are clear to auscultation. Abdomen is soft, with mild discomfort in the right lower quadrant.. Bowel sounds are active. Extremities show no edema. neurologic exam is grossly nonfocal. Medical - PN: Obj Da - Labs CBC & Chem 7: 08/18/17 03:46 08/18/17 03:46 Labs: Abnormal Lab Results 08/18/17 08/18/17 08/17/17 03:46 03:46 09:48 WBC RBC 2.95 L Hgb 9.6 L Hct 28.6 L POC Hct MPV 7.2 L Gran % 87.1 H Lymph % (Auto) 6.3 L Gran # Lymph # (Auto) 0.5 L Seg Neutrophils % Lymphocytes % POC Sodium Sodium 128 L POC Potassium Potassium POC Chloride Chloride Carbon Dioxide 19 L BUN 5 L Creatinine 0.5 L Glucose 119 H Uric Acid 2.0 L Calcium 7.0 L POC WB Ioniz Calcium Ionized Calcium Sonam Phosphorus 1.7 L Magnesium GGT 44 H Alkaline Phosphatase Total Protein 4.4 L Albumin 1.8 L Albumin/Globulin Ratio 0.7 L Triglycerides 180 H 25-OH Vitamin D Total 25.46 L Ur Leukocyte Esterase Urine WBC Urine Bacteria 08/17/17 08/17/17 08/16/17 03:35 03:35 18:50 WBC RBC 2.95 L Hgb 9.5 L Hct 28.1 L POC Hct MPV Gran % 93.6 H Lymph % (Auto) 1.8 L Gran # 8.8 H Lymph # (Auto) 0.2 L Seg Neutrophils % Lymphocytes % POC Sodium Sodium 125 L 122 L POC Potassium Potassium POC Chloride Chloride 92 L 87 L Carbon Dioxide 21 L 21 L BUN Creatinine Glucose 144 H 109 H Uric Acid Calcium 6.8 L POC WB Ioniz Calcium Ionized Calcium Sonam 0.94 L Phosphorus 2.2 L Magnesium 1.2 L GGT 46 H Alkaline Phosphatase Total Protein 4.4 L Albumin 1.9 L Albumin/Globulin Ratio 0.8 L Triglycerides 178 H 25-OH Vitamin D Total Ur Leukocyte Esterase Urine WBC Urine Bacteria 08/16/17 08/16/17 08/16/17 13:09 13:07 11:48 WBC RBC Hgb Hct POC Hct 34.0 L MPV Gran % Lymph % (Auto) Gran # Lymph # (Auto) Seg Neutrophils % Lymphocytes % POC Sodium 122 L Sodium 118 L* POC Potassium 2.7 L* Potassium 3.0 L POC Chloride 83 L Chloride 79 L Carbon Dioxide BUN Creatinine Glucose 112 H Uric Acid Calcium 7.9 L POC WB Ioniz Calcium 0.96 L Ionized Calcium Sonam Phosphorus Magnesium GGT Alkaline Phosphatase 125 H Total Protein Albumin 2.5 L Albumin/Globulin Ratio 0.7 L Triglycerides 25-OH Vitamin D Total Ur Leukocyte Esterase 25 A Urine WBC 7 H Urine Bacteria Few A 08/16/17 11:48 WBC 12.0 H RBC 3.76 L Hgb Hct 35.9 L POC Hct MPV 7.0 L Gran % Lymph % (Auto) Gran # Lymph # (Auto) Seg Neutrophils % 87 H Lymphocytes % 4 L POC Sodium Sodium POC Potassium Potassium POC Chloride Chloride Carbon Dioxide BUN Creatinine Glucose Uric Acid Calcium POC WB Ioniz Calcium Ionized Calcium Sonam Phosphorus Magnesium GGT Alkaline Phosphatase Total Protein Albumin Albumin/Globulin Ratio Triglycerides 25-OH Vitamin D Total Ur Leukocyte Esterase Urine WBC Urine Bacteria Ross 4: Echocardiogram: Results are pending. August 17: Blood cultures: One bottle grew coag negative staph, thought to be a contaminant. A gram-positive bacillus and coag-negative bacillus are also growing, ID to follow. I believe a second bottle is growing both gram-negative bacillus and gram- positive bacillus. Lactic acid is normal. Pro-calcitonin is elevated at 3.85, which could be consistent with sepsis. August 16: Urinalysis shows pH of 6, 25 leukocyte esterase, 7 white blood cells, few bacteria. Culture shows 20-30,000 Klebsiella, pansensitive. Lactic acid: Is normal at 0.7 Chest x-ray: FINDINGS: The heart is borderline enlarged. Mediastinum and pulmonary vasculature are unremarkable. Lungs are clear. No effusions.IMPRESSION: No acute disease CT abdomen pelvis done on 07/14/17 shows complex cyst left ovary, diverticulosis , enteritis, inflammation in the stomach. Pelvic US done 08/13 shows Tubular serpiginous region of cystic abnormality left adnexa. More later there is a large cyst partially imaged AP diameter 3.3cm and a hyperechoic septation EGD shows Query celiac. Gastritis. Duodenal diverticuli. Bacterial overgrowth. Meds: Medications Acetaminophen (Tylenol) 650 mg PO Q6HP PRN PRN Reason: PAIN/FEVER > 101 Last Admin: 08/17/17 15:52 Dose: 650 mg Albuterol Sulfate (Ventolin) 2.5 mg NEB Q4HRT PRN PRN Reason: Shortness Of Breath Or Wheezing Calcium/Vitamin D (Calcium W/Vit D3) 500 mg PO BID [facility] Last Admin: 08/18/17 10:02 Dose: 500 mg Ceftriaxone Sodium (Rocephin) 1 gm IV DAILY [facility] Last Admin: 08/18/17 10:02 Dose: 1 gm Docusate Sodium (Colace) 100 mg PO BID PRN PRN Reason: Constipation Heparin Sodium (Porcine) (Heparin) 5,000 unit SQ Q12 [facility] Last Admin: 08/18/17 10:02 Dose: 5,000 unit Potassium Chloride 30 meq/ (Dextrose/Sodium Chloride) 1,015 mls @ 125 mls/hr IV .Q8H8M [facility] Last Admin: 08/18/17 10:04 Dose: Not Given Vancomycin HCl 750 mg/ Sodium (Chloride) 250 mls @ 250 mls/hr IV ONCE ONE Stop: 08/18/17 16:59 Lorazepam (Ativan) 0.5 mg PO HSP PRN PRN Reason: ANXIETY/SEDATION Last Admin: 08/16/17 21:56 Dose: 0.5 mg Magnesium Hydroxide (Milk Of Magnesia) 30 ml PO DAILYP PRN PRN Reason: Constipation Metoprolol Succinate (Toprol Xl) 25 mg PO DAILY [facility] Last Admin: 08/18/17 10:04 Dose: Not Given Ondansetron HCl (Zofran) 4 mg IV Q4HP PRN PRN Reason: Nausea And Vomiting Pantoprazole Sodium (Protonix) 40 mg IV BIDAC [facility] Last Admin: 08/18/17 07:07 Dose: 40 mg Potassium/Phosphorus/Sodium (Neutra Phos) 2 packet PO QNOON [facility] Last Admin: 08/17/17 13:27 Dose: 2 packet Vancomycin HCl (Vancomycin Per Pharmacy) 1 order IV UD [facility] Vitamin D (Vitamin D3) 1,000 unit PO BID [facility] Last Admin: 08/18/17 10:02 Dose: 1,000 unit Medical - PN: A/P - Time Spent With Patient Total time spent is greater than 50% in coordination of care (as documented) at patient's floor/unit and/or counseling patient: 25 - 35 minutes (1) Dehydration Status: Acute Current Visit: Yes (2) Nausea and vomiting in adult Status: Acute Current Visit: Yes (3) Pyuria Status: Acute Current Visit: Yes (4) Hypotension Status: Acute Current Visit: Yes (5) Gastritis and duodenitis Status: Chronic Current Visit: Yes (6) Hyponatremia Status: Acute Current Visit: Yes (7) Hypokalemia Status: Acute Current Visit: Yes - Narrative A/P Narrative: #1. Cardiac. Patient presents with dizziness, falls, hypotension, electrolyte abnormalities. It would appear that her hypotension is at least partly due to her blood pressure medications, in the setting of ongoing nausea and vomiting and dehydration. -She continues on IV fluids, and blood pressure is gradually improving. We have been replacing sodium, calcium, phosphorus, magnesium. Hypertension. -Currently hypotensive, hold blood pressure medications for now. Discussed with the patient and her that if she is having ongoing diarrhea, weight loss, poor p.o. intake, she probably should not be taking all of her blood pressure medications. I advised her to try checking her blood pressure prior to taking her morning meds, and then at least get the diuretic if her blood pressure is low, or call her regular doctor for advice. 2. GI. She has ongoing GI symptoms. She is under the care of Dr. Green as an outpatient. EGD showed both gastritis and duodenitis. -Change oral to IV PPI. -Per GI, she also had duodenal diverticuli with presumed bacterial overgrowth. This may have caused symptoms of chronic steatorrhea. She may be feeling better as the IV antibiotics address this. -Hemoglobin is lower today, and her baseline appears closer to 10.5. She reports that Dr. Green plans on doing a colonoscopy soon as well. It is unclear if she could have a subacute GI bleed, or if this is more a chronic nutritional issue. Guaiac all stools. Continue to monitor. -Nutrition consult. 3. Endocrine. Patient presents with hyponatremia, hypokalemia, hypochloremia, all possibly due to medications and ongoing vomiting issues. -Urine sodium was low, and hyponatremia is improving with IV fluids. Continue same. -Replace electrolytes and minerals as indicated. -Vitamin D is borderline low. Replace calcium and vitamin D orally. 4. CODE STATUS: Code. will act as her POA. 5. DVT prophylaxis: Subcu heparin. #6. Infectious disease. Urinalysis is mildly abnormal. Covered with Rocephin for possible UTI pending cultures. -Today her urine culture is growing only 20,000 pansensitive Klebsiella. However, but cultures are growing 3 different organisms. One appears to be staph epi, which is considered to be a contaminant. She is also growing a gram- positive and gram-negative pete. ID is pending. Source of these organisms is unclear. - She has only a low-grade fever, and white blood cell count is back to normal. Ordered echocardiogram given her relative hypotension and to look for signs of vegetations. Other source for multiple organisms may be the GI tract. Medical - PN: Qual - VTE Deep Vein Thrombosis/Pulmonary Embolism Present on Admission: No
[2017-08-18] MEDS: NEUTRA PHOS 1 PACKET PO SCH (12:00)
--- NOTE | 2017-08-18 13:30 | Internal Medicine Consult Note ---
Medical - CN: HPI - Data of Consult Patient: known to practice within the last 3 years Consult date: 08/18/17 Requesting Physician: Haleigh Arita Primary Care Provider: Emerson Connors Family Provider: mImanuel Pandey - Consult Narrative Reason for consult: Abdominal pain, nausea History of present illness: Ms. Barboza is a 82 year old F whom I recently saw in an outpatient consultation for 9 month history of abdominal pain, 30lbs weight loss and evidence of steatorrhea with abnormal CT revealing thickened gastric folds. She began to feel unwell 2-3 days prior to hospitalization, with nausea, vomiting and dizziness. After falling multiple times, her brought her to the ED where she was found to be hyponatremic with a sodium 118. She tells me she drinks copious amounts of water, but apparently her told hospitalist this was not true. She did not have peritoneal signs on presentation to ER, but for unclear reasons, her blood cultures have grown out both gram negative and positive bacilli. Urine culture grew out klebsiella which could explain the gram negative bacilli. She underwent EGD last week, which showed two duodenal diverticuli. Gastric biopsies negative for Menetriers and small bowel biopsies were negative for celiac or other malabsorption. Since starting ceftriaxone and vancomycin--and with correction of her sodium-- she is feeling dramatically better. In fact, her diarrhea has stopped, indicating bacterial overgrowth is likely the mechanism of her malabsorption. Chest xray showed no evidence of mass. CC: Haleigh Arita All systems: reviewed and no additional remarkable complaints except as stated ( as above.) Medical - CN: PMH Medical history: hypertension Surgical history: cholecystectomy Family history: reviewed and not pertinent Smoking status: Never smoker Alcohol use: other (daily wine) Medical - CN: Meds Home Medications Medication Instructions Recorded Confirmed Type Ergocalciferol (Vitamin D2) 50,000 unit PO WEEKLY 08/16/17 08/16/17 History [Vitamin D2] Lisinopril [Zestril] 20 mg PO DAILY 08/16/17 08/16/17 History Metoprolol Succinate 25 mg PO DAILY 08/16/17 08/16/17 History Omeprazole [PriLOSEC] 20 mg PO DAILY 08/16/17 08/16/17 History Spironolactone [Aldactone] 25 mg PO DAILY 08/16/17 08/16/17 History amLODIPine [Norvasc] 5 mg PO DAILY 08/16/17 08/16/17 History Allergies Allergy/AdvReac Type Severity Reaction Status Date / Time No Known Drug Allergies Allergy Verified 08/16/17 11:03 Medical - CN: Exam - Constitutional Vitals: Temp Pulse Resp BP Pulse Ox 97.9 F 85 16 125/63 100 08/18/17 12:00 08/18/17 12:00 08/18/17 12:00 08/18/17 12:00 08/18/17 08:00 General appearance: average body habitus, cooperative, no acute distress - Head Head exam: Present: atraumatic - Neck Neck exam: Absent: lymphadenopathy, thyromegaly - Respiratory Respiratory exam: Present: normal respiratory exam, CTAB - Cardiovascular Cardiovascular exam: Present: normal rate and rhythm - GI/Abdominal GI/Abdominal exam: Present: normal bowel sounds. Absent: mass, organomegaly, tenderness - Neurological Exam Neurological exam: Present: alert, oriented X3 - Skin Skin exam: Present: dry, warm. Absent: erythema, pallor Medical - CN: Result - Labs CBC & Chem 7: 08/18/17 03:46 08/18/17 03:46 Labs: Short CBC 08/18/17 Range/Units 03:46 WBC 7.7 (4.5-11.0) K/mcL Hgb 9.6 L (12.0-15.0) g/dL Hct 28.6 L (36.0-48.0) % Plt Count 252 (140-440) K/mcL BMP 08/18/17 03:46 Sodium 128 L Potassium 4.8 Chloride 97 Carbon Dioxide 19 L BUN 5 L Creatinine 0.5 L Glucose 119 H Calcium 7.0 L Liver Function 08/18/17 Range/Units 03:46 Total Bilirubin 0.3 (0.0-1.0) mg/dL Direct Bilirubin < 0.2 (0.0-0.3) mg/dL GGT 44 H (5-36) U/L AST 15 (0-37) U/l ALT 13 (0-40) U/l Alkaline Phosphatase 95 (39-117) U/L Albumin 1.8 L (3.2-5.2) gm/dL Medical - CN: A/P (1) Small intestinal bacterial overgrowth Status: Acute Assessment and plan: Secondary to duodenal diverticuli resulting in rather dramatic malabsorption. Unlikely she had a small bowel perforation following EGD given lack of peritoneal findings, so etiology of positive blood cultures unclear. Suspect nausea and dizziness related to hyponatremia. Fluid intake on diuretics should be monitored. She is scheduled for colonoscopy w/ random colon biopsies next week. We may consider postponing given her improvement on antibiotic therapy. She may require repeat courses of low dose antibiotics as she is a risk for recurrent bacterial overgrowth.
[2017-08-18] MEDS ORDERED: VANCOMYCIN 750 MG in 0.9 % SODIUM CHLORIDE 250 ML IV ONE (16:00)
[2017-08-18] MEDS: ACETAMINOPHEN 325 MG TABLET PO PRN (17:36)
[2017-08-18] MEDS: FLUTICASONE PROPIONATE SPRAY.NAS NS PRN (17:36)
[2017-08-19] MEDS: [UNRECOGNIZED DRUG - OTHER] IV SCH (01:57)
[2017-08-19] MEDS: DEXTROSE 5% IV SCH (01:57)
[2017-08-19] MEDS: POTASSIUM CHLORIDE IV SCH (01:57)
[2017-08-19] MEDS ORDERED: POTASSIUM CHLORIDE 20 MEQ/10 ML VIAL IV ONE (02:00)
[2017-08-19 05:02] LABS: Basophils # (Auto) 0 K/mcL (0.0-0.3); Basophils % (Auto) 0.6 % (0.0-2.0); Eosinophils # (Auto) 0.1 K/mcL (0.0-0.7); Eosinophils % (Auto) 1.3 % (0.0-7.0); Granulocytes % (Auto) 82.7 % (38.0-78.0); Lymphocytes # (Auto) 0.6 K/mcL (1.5-4.8); Lymphocytes % (Auto) 9.4 % (15.5-49.0); Mean Cell Volume 94.5 fL (80.0-100.0); Mean Corpuscular HGB Conc 33.8 g/dL (31.0-36.0); Mean Corpuscular Hemoglobin 31.9 pg (26.0-34.0); Monocytes # (Auto) 0.4 K/mcL (0.1-0.9); Platelet Count 311 K/mcL (140-440); RBC 3.01 M/mcL (4.00-5.20); Red Cell Distribution Width 13.5 % (11.5-14.5)
[2017-08-19 05:42] LABS: ALT/SGPT 16 U/l (0-40); Albumin/Globulin Ratio 0.8 (1.0-2.3); Alkaline Phosphatase 94 U/L (39-117); Bilirubin,Direct 0.2 mg/dL (0.0-0.3); Blood Urea Nitrogen 4 mg/dl (8-23); Gamma Glutamyl Transpeptidase 50 U/L (5-36); Magnesium 1.8 mg/dL (1.6-2.5); Uric Acid 1.4 mg/dL (2.5-8.0)
[2017-08-19] MEDS: PANTOPRAZOLE 40 MG VIAL IV SCH ×2 (07:30→16:24)
[2017-08-19] MEDS: HEPARIN 5,000 UNIT/ML VIAL SQ SCH ×2 (08:22→21:00)
[2017-08-19] MEDS: CALCIUM W/VIT D3 500 MG TABLET PO SCH ×2 (08:23→21:00)
[2017-08-19] MEDS: METOPROLOL SUCCINATE 25 MG TAB.XL.24H PO SCH (08:23)
[2017-08-19] MEDS: VITAMIN D3 1,000 UNIT TABLET PO SCH ×2 (08:23→21:00)
[2017-08-19] MEDS: cefTRIAXone 1 GM VIAL IV SCH (08:25)
[2017-08-19] MEDS: POTASSIUM CHLORIDE 10 MEQ in DEXTROSE 5%-NS 1,000 ML IV SCH ×2 (08:30→19:36)
--- NOTE | 2017-08-19 11:00 | Internal Med Progress Note ---
Medical - PN: Subj Patient information: Note initiated : 08/19/17 at 11:00 am Service Date, if different from initiated Date: [] Patient: Eugenia Barboza 82 y/o F admitted on 08/16/17 for N/V, Hyponatremia, Hypokalemia, UTI, Hypotension. Chief Complaint: [] Interval history: August 16, 2017: History of present illness: Ms. Barboza is a 82 year old female who reportedly has recent issues with nausea and vomiting and abdominal discomfort. She underwent an upper endoscopy a few days ago, which found gastritis and bacterial overgrowth. There was a question of possible celiac disease, but biopsy show only active duodenitis and chronic gastritis, negative for H. pylori or signs of celiac disease. She has had nausea and vomiting and dizziness for the last several days, and has had several falls. Her notes that she has been having problems with diarrhea for several months. He says her primary care doctor and her GI doctor have run numerous tests without a definite answer. Over the last several weeks she has also developed abdominal pain and intermittent nausea and vomiting. She had an endoscopy a few days ago, which showed gastritis and duodenitis. Her says she has actually gotten worse since then, and has had progressive weakness, loss of appetite, and has fallen several times due to being weak when she stands up. The patient says she just feels off balance when she stands. Her notes she has been complaining of feeling cold lately which is much worse than usual. She has had some intermittent headaches. She has an occasional cough, which is nonproductive. Otherwise she denies fevers, overt dizziness, new eye or ear symptoms, sore throat, swollen glands, chest pain or palpitations, shortness of breath or wheezing. She reports intermittent lower abdominal discomfort along with the nausea and vomiting. She says she has not had much diarrhea recently. She denies rectal bleeding or dysuria. Her notes that she has had what was described as severe hypertension for many many years. She has been hospitalized for this in the past, and he says specialist to run numerous test but never really sorted out the cause. Says she also has had trouble with hyponatremia for years, and they have never found a definite cause for that either. [place] her reports she has lost about 30 pounds over the last couple of years. ER evaluation showed initial blood pressure of 80/60, hyponatremia, hypokalemia , leukocytosis, abnormal urinalysis. August 17: Overnight, the patient remained fairly stable. Her blood pressure continues to run rather low. She reports she still quite fatigued, and still has lower abdominal discomfort, but these are symptoms that have been going on for quite some time. She did sit up in a chair today without significant dizziness. She otherwise denies fever chills, headaches or dizziness, chest pain or palpitations, shortness of breath, nausea or vomiting, diarrhea or constipation or dysuria. Lab did call today to say 1 bottle of her blood cultures is growing gram- positive cocci. August 18: Today, the patient's blood cultures are growing gram-positive cocci, and gram- negative and gram-positive rods. Urine is growing Klebsiella. T-max was 99.4 last night. White blood cell count returned to normal just on IV Rocephin. Vancomycin was added last night because of the gram positives in her blood. The patient continues to deny fever or significant chills, though she is often cold. She says she is feeling quite a bit better today, and tolerated Azer[place] toast for breakfast. She denies significant sinus symptoms, other than occasional sinus congestion. She does not report toothache or earache or swollen glands. She denies significant cough or shortness of breath. She has not had further nausea or vomiting, and has not had any stool at all today, let alone diarrhea. She denies dysuria. We have been correcting her numerous lab abnormalities with oral calcium and phosphorus replacement, as well as IV magnesium and potassium and sodium. Spironolactone is on hold due to probable severe dehydration, which is likely secondary to chronic diarrhea. 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 The patient reports she has lost 30 pounds over the last year, unintentionally. August 19: Today, the patient says her energy continues to improve. She seems to be tolerating more oral nutrition as well. Her notes her abdominal pain and appetite definitely worsened after her upper endoscopy last week. He is pleased that she is improving. -Dr. Purdy from [facility] called today, to report that her pelvic ultrasound that was done over there did show a complex ovarian mass. They are recommending that she follow-up with [facility] in [place] after discharge, to look into that further. -Otherwise, patient denies fever chills, headaches or dizziness, chest pain or shortness of breath. She continues to have mild lower abdominal discomfort, but thinks it may be better. She denies dysuria. - Constitutional Vitals: Vital Signs Temp Pulse Resp BP Pulse Ox 98.0 F 80 16 124/65 100 08/19/17 08:00 08/19/17 03:40 08/19/17 08:00 08/19/17 08:00 08/19/17 08:00 Period Temp Pulse Resp BP Sys/Parks Pulse Ox Last 24 Hr 97.2 F-98.6 F 80-85 16-16 105-126/58-70 99-100 Intake and Output 08/18/17 08/19/17 08/19/17 21:59 05:59 13:59 Intake Total 840 / 840 1440 / 1440 1119 / 1119 Output Total 950 / 950 1400 / 1400 452 / 452 Balance -110 / -110 40 / 40 667 / 667 Weight 119 lb Intake & Output: Intake & Output 08/18/17 08/19/17 08/19/17 21:59 05:59 13:59 Intake Total 840 / 840 1440 / 1440 1119 / 1119 Output Total 950 / 950 1400 / 1400 452 / 452 Balance -110 / -110 40 / 40 667 / 667 Weight 119 lb Intake: IV 1015 / 1015 819 / 819 Potassium Chloride 30 Meq In 1015 / 1015 819 / 819 Dextrose 5%-Ns IV Solution 1, 000 ml @ 125 mls/hr IV .Q8H8M [facility] Rx#:[id number] Oral 840 / 840 425 / 425 300 / 300 Output: Void Amount 950 / 950 450 / 450 2 / 2 Urine/Stool Mix 950 / 950 450 / 450 Other: Meal Dinner Breakfast Percent of Meal Consumed nausea 75% # Bowel Movements 1 1 On exam, the patient is awake and alert. She appears brighter today, and more energetic.. Neck is supple without obvious lymphadenopathy or JVD. Cardiac exam shows regular rate and rhythm. lungs are clear to auscultation. Abdomen is soft, with mild discomfort in the right lower quadrant.. Bowel sounds are active. Extremities show no edema. neurologic exam is grossly nonfocal. Medical - PN: Obj Da - Labs CBC & Chem 7: 08/19/17 03:35 08/19/17 03:35 Labs: Abnormal Lab Results 08/19/17 08/19/17 08/18/17 03:35 03:35 03:46 WBC RBC 3.01 L Hgb 9.6 L Hct 28.4 L POC Hct MPV 7.2 L Gran % 82.7 H Lymph % (Auto) 9.4 L Gran # Lymph # (Auto) 0.6 L Seg Neutrophils % Lymphocytes % POC Sodium Sodium 128 L 128 L POC Potassium Potassium 5.5 H POC Chloride Chloride Carbon Dioxide 20 L 19 L BUN 4 L 5 L Creatinine 0.4 L 0.5 L Glucose 120 H 119 H Uric Acid 1.4 L 2.0 L Calcium 7.4 L 7.0 L POC WB Ioniz Calcium Ionized Calcium Sonam Phosphorus 2.1 L 1.7 L Magnesium GGT 50 H 44 H Alkaline Phosphatase Total Protein 4.5 L 4.4 L Albumin 2.0 L 1.8 L Albumin/Globulin Ratio 0.8 L 0.7 L Triglycerides 180 H 25-OH Vitamin D Total Ur Leukocyte Esterase Urine WBC Urine Bacteria 08/18/17 08/17/17 08/17/17 03:46 09:48 03:35 WBC RBC 2.95 L Hgb 9.6 L Hct 28.6 L POC Hct MPV 7.2 L Gran % 87.1 H Lymph % (Auto) 6.3 L Gran # Lymph # (Auto) 0.5 L Seg Neutrophils % Lymphocytes % POC Sodium Sodium 125 L POC Potassium Potassium POC Chloride Chloride 92 L Carbon Dioxide 21 L BUN Creatinine Glucose 144 H Uric Acid Calcium 6.8 L POC WB Ioniz Calcium Ionized Calcium Sonam Phosphorus 2.2 L Magnesium 1.2 L GGT 46 H Alkaline Phosphatase Total Protein 4.4 L Albumin 1.9 L Albumin/Globulin Ratio 0.8 L Triglycerides 178 H 25-OH Vitamin D Total 25.46 L Ur Leukocyte Esterase Urine WBC Urine Bacteria 08/17/17 08/16/17 08/16/17 03:35 18:50 13:09 WBC RBC 2.95 L Hgb 9.5 L Hct 28.1 L POC Hct 34.0 L MPV Gran % 93.6 H Lymph % (Auto) 1.8 L Gran # 8.8 H Lymph # (Auto) 0.2 L Seg Neutrophils % Lymphocytes % POC Sodium 122 L Sodium 122 L POC Potassium 2.7 L* Potassium POC Chloride 83 L Chloride 87 L Carbon Dioxide 21 L BUN Creatinine Glucose 109 H Uric Acid Calcium POC WB Ioniz Calcium 0.96 L Ionized Calcium Sonam 0.94 L Phosphorus Magnesium GGT Alkaline Phosphatase Total Protein Albumin Albumin/Globulin Ratio Triglycerides 25-OH Vitamin D Total Ur Leukocyte Esterase Urine WBC Urine Bacteria 08/16/17 08/16/17 08/16/17 13:07 11:48 11:48 WBC 12.0 H RBC 3.76 L Hgb Hct 35.9 L POC Hct MPV 7.0 L Gran % Lymph % (Auto) Gran # Lymph # (Auto) Seg Neutrophils % 87 H Lymphocytes % 4 L POC Sodium Sodium 118 L* POC Potassium Potassium 3.0 L POC Chloride Chloride 79 L Carbon Dioxide BUN Creatinine Glucose 112 H Uric Acid Calcium 7.9 L POC WB Ioniz Calcium Ionized Calcium Sonam Phosphorus Magnesium GGT Alkaline Phosphatase 125 H Total Protein Albumin 2.5 L Albumin/Globulin Ratio 0.7 L Triglycerides 25-OH Vitamin D Total Ur Leukocyte Esterase 25 A Urine WBC 7 H Urine Bacteria Few A August 18: Echocardiogram: Shows normal left ventricle with normal systolic function. Mildly dilated left atrium. Ejection fraction 70%. No signs of valvular vegetations. August 17: Blood cultures: One bottle grew coag negative staph, thought to be a contaminant. A gram-positive bacillus and coag-negative bacillus are also growing, ID to follow. I believe a second bottle is growing both gram-negative bacillus and gram- positive bacillus. Lactic acid is normal. Pro-calcitonin is elevated at 3.85, which could be consistent with sepsis. August 16: Urinalysis shows pH of 6, 25 leukocyte esterase, 7 white blood cells, few bacteria. Culture shows 20-30,000 Klebsiella, pansensitive. Lactic acid: Is normal at 0.7 Chest x-ray: FINDINGS: The heart is borderline enlarged. Mediastinum and pulmonary vasculature are unremarkable. Lungs are clear. No effusions.IMPRESSION: No acute disease CT abdomen pelvis done on 07/14/17 shows complex cyst left ovary, diverticulosis , enteritis, inflammation in the stomach. Pelvic US done 08/13 shows Tubular serpiginous region of cystic abnormality left adnexa. More later there is a large cyst partially imaged AP diameter 3.3cm and a hyperechoic septation EGD shows Query celiac. Gastritis. Duodenal diverticuli. Bacterial overgrowth. Meds: Medications Acetaminophen (Tylenol) 650 mg PO Q6HP PRN PRN Reason: PAIN/FEVER > 101 Last Admin: 08/18/17 17:36 Dose: 650 mg Albuterol Sulfate (Ventolin) 2.5 mg NEB Q4HRT PRN PRN Reason: Shortness Of Breath Or Wheezing Calcium/Vitamin D (Calcium W/Vit D3) 500 mg PO BID [facility] Last Admin: 08/19/17 08:23 Dose: 500 mg Ceftriaxone Sodium (Rocephin) 1 gm IV DAILY [facility] Last Admin: 08/19/17 08:25 Dose: 1 gm Docusate Sodium (Colace) 100 mg PO BID PRN PRN Reason: Constipation Fluticasone Propionate (Flonase) 1 spray NS BIDP PRN PRN Reason: Allergic Symptoms Last Admin: 08/18/17 17:36 Dose: 1 spray Heparin Sodium (Porcine) (Heparin) 5,000 unit SQ Q12 [facility] Last Admin: 08/19/17 08:22 Dose: 5,000 unit Potassium Chloride 10 meq/ (Dextrose/Sodium Chloride) 1,005 mls @ 100 mls/hr IV .Q10H3M [facility] Last Admin: 08/19/17 08:30 Dose: 100 mls/hr Lorazepam (Ativan) 0.5 mg PO HSP PRN PRN Reason: ANXIETY/SEDATION Last Admin: 08/16/17 21:56 Dose: 0.5 mg Magnesium Hydroxide (Milk Of Magnesia) 30 ml PO DAILYP PRN PRN Reason: Constipation Metoprolol Succinate (Toprol Xl) 25 mg PO DAILY [facility] Last Admin: 08/19/17 08:23 Dose: 25 mg Ondansetron HCl (Zofran) 4 mg IV Q4HP PRN PRN Reason: Nausea And Vomiting Pantoprazole Sodium (Protonix) 40 mg IV BIDAC [facility] Last Admin: 08/19/17 07:30 Dose: 40 mg Potassium/Phosphorus/Sodium (Neutra Phos) 2 packet PO QNOON [facility] Last Admin: 08/18/17 12:00 Dose: 2 packet Vancomycin HCl (Vancomycin Per Pharmacy) 1 order IV UD [place] Vitamin D (Vitamin D3) 1,000 unit PO BID [facility] Last Admin: 08/19/17 08:23 Dose: 1,000 unit Medical - PN: A/P - Time Spent With Patient Total time spent is greater than 50% in coordination of care (as documented) at patient's floor/unit and/or counseling patient: 25 - 35 minutes (1) Dehydration Status: Acute Current Visit: Yes (2) Nausea and vomiting in adult Status: Acute Current Visit: Yes (3) Pyuria Status: Acute Current Visit: Yes (4) Hypotension Status: Acute Current Visit: Yes (5) Gastritis and duodenitis Status: Chronic Current Visit: Yes (6) Hyponatremia Status: Acute Current Visit: Yes (7) Hypokalemia Status: Acute Current Visit: Yes - Narrative A/P Narrative: #1. Cardiac. Patient presents with dizziness, falls, hypotension, electrolyte abnormalities. It would appear that her hypotension is at least partly due to her blood pressure medications, in the setting of ongoing nausea and vomiting and dehydration. -She continues on IV fluids, and blood pressure is gradually improving. We have been replacing sodium, calcium, phosphorus, magnesium. Hypertension. -Blood pressure medications have been on hold. Patient's blood pressures are just now approaching normal. Discussed with the patient and her that if she is having ongoing diarrhea, weight loss, poor p.o. intake, she probably should not be taking all of her blood pressure medications. I advised her to try checking her blood pressure prior to taking her morning meds, and then at least get the diuretic if her blood pressure is low, or call her regular doctor for advice. 2. GI. She has ongoing GI symptoms. She is under the care of Dr. Green as an outpatient. EGD showed both gastritis and duodenitis. -Change oral to IV PPI. -Per GI, she also had duodenal diverticuli with presumed bacterial overgrowth. This may have caused symptoms of chronic steatorrhea. She may be feeling better as the IV antibiotics address this. -Hemoglobin is lower and her baseline appears closer to 10.5. She reports that Dr. Green plans on doing a colonoscopy soon as well. It is unclear if she could have a subacute GI bleed, or if this is more a chronic nutritional issue. Guaiac all stools. Continue to monitor. -Nutrition consult. 3. Endocrine. Patient presents with hyponatremia, hypokalemia, hypochloremia, all possibly due to medications and ongoing vomiting issues. -Urine sodium was low, and hyponatremia is improving with IV fluids. Continue same. -Replace electrolytes and minerals as indicated. -Vitamin D is borderline low. Replace calcium and vitamin D orally. 4. CODE STATUS: Code. will act as her POA. 5. DVT prophylaxis: Subcu heparin. #6. Infectious disease. Urinalysis is mildly abnormal. Covered with Rocephin for possible UTI pending cultures. -Today her urine culture is growing only 20,000 pansensitive Klebsiella. However, but cultures are growing 3 different organisms. One appears to be staph epi, which is considered to be a contaminant. She is also growing a gram- positive and gram-negative pete. ID is pending. Source of these organisms is unclear. - She has only a low-grade fever, and white blood cell count is back to normal. Ordered echocardiogram given her relative hypotension and to look for signs of vegetations. Other source for multiple organisms may be the GI tract. #7. [facility]. Dr. Purdy from [facility] called today to discuss the patient's recent pelvic ultrasound. There is a complex ovarian mass, and they said she needs to be referred to [facility] for further evaluation of that. This will likely have to happen after she is discharged. Medical - PN: Qual - VTE Deep Vein Thrombosis/Pulmonary Embolism Present on Admission: No
[2017-08-19] MEDS: NEUTRA PHOS 1 PACKET PO SCH (16:23)
[2017-08-19] MEDS: VANCOMYCIN 1,000 MG in 0.9 % SODIUM CHLORIDE 250 ML IV SCH (16:58)
[2017-08-20 05:27] LABS: Basophils # (Auto) 0 K/mcL (0.0-0.3); Basophils % (Auto) 0.3 % (0.0-2.0); Eosinophils # (Auto) 0.1 K/mcL (0.0-0.7); Eosinophils % (Auto) 1.2 % (0.0-7.0); Granulocytes % (Auto) 75.1 % (38.0-78.0); Lymphocytes # (Auto) 0.9 K/mcL (1.5-4.8); Lymphocytes % (Auto) 15.4 % (15.5-49.0); Mean Cell Volume 95.3 fL (80.0-100.0); Mean Corpuscular HGB Conc 33.4 g/dL (31.0-36.0); Mean Corpuscular Hemoglobin 31.9 pg (26.0-34.0); Monocytes # (Auto) 0.5 K/mcL (0.1-0.9); Platelet Count 403 K/mcL (140-440); RBC 2.99 M/mcL (4.00-5.20); Red Cell Distribution Width 14.1 % (11.5-14.5)
[2017-08-20 05:45] LABS: ALT/SGPT 15 U/l (0-40); Albumin 2.1 gm/dL (3.2-5.2); Albumin/Globulin Ratio 0.8 (1.0-2.3); Alkaline Phosphatase 90 U/L (39-117); Bilirubin,Direct < 0.2 mg/dL (0.0-0.3); Blood Urea Nitrogen 4 mg/dl (8-23); Gamma Glutamyl Transpeptidase 48 U/L (5-36); Magnesium 1.6 mg/dL (1.6-2.5); Uric Acid 1.3 mg/dL (2.5-8.0)
[2017-08-20] MEDS: PANTOPRAZOLE 40 MG VIAL IV SCH ×2 (07:34→17:09)
[2017-08-20] MEDS: POTASSIUM CHLORIDE 10 MEQ in DEXTROSE 5%-NS 1,000 ML IV SCH ×3 (08:48→20:44)
[2017-08-20] MEDS ORDERED: IOPAMIDOL 100 ML BOTTLE IV ONE (09:47)
[2017-08-20] MEDS: CALCIUM W/VIT D3 500 MG TABLET PO SCH ×2 (10:13→20:40)
[2017-08-20] MEDS: FLUTICASONE PROPIONATE SPRAY.NAS NS PRN (10:13)
[2017-08-20] MEDS: HEPARIN 5,000 UNIT/ML VIAL SQ SCH (10:13)
[2017-08-20] MEDS: cefTRIAXone 1 GM VIAL IV SCH (10:14)
[2017-08-20] MEDS: METOPROLOL SUCCINATE 25 MG TAB.XL.24H PO SCH (10:14)
[2017-08-20] MEDS: VANCOMYCIN 1,000 MG in 0.9 % SODIUM CHLORIDE 250 ML IV SCH (10:14)
[2017-08-20] MEDS: VITAMIN D3 1,000 UNIT TABLET PO SCH ×2 (10:14→20:41)
--- NOTE | 2017-08-20 11:09 | Cat Scan Report ---
CLINICAL INFORMATION: Reason for Exam:bacteremia, hx EGD with bx, ovarian mass COMPARISON: None. TECHNIQUE: Following injection of intravenous contrast the patient was scanned during the portal venous phase from the diaphragm through the symphysis pubis. Sagittal and coronal reformats were created.. FINDINGS: There are very small bilateral layering pleural effusions. There is minor scarring or discoid atelectasis posteriorly both lower lobes and inferiorly in the medial segment of the right middle lobe. The liver and spleen are normal in size and homogeneous. The gallbladder has been removed. Distal common bile duct is dilated and measures 1.4 cm within the head of the pancreas. This tapers at the ampulla there is no evidence of a stone in the distal duct. This also no evidence of a mass in the pancreas. The adrenal glands are normal. There is mild parenchymal scarring anteriorly in the lower pole of the right kidney. There is no evidence for renal mass, calculus or hydronephrosis in either kidney. There is acute thrombosis of the superior mesenteric vein. This comes to within 1 cm of the portal vein. The portal vein and splenic vein are patent and have normal blood flow. Oral contrast passes through normal small intestine to the ileum without obstruction. Contrast has not passed through the terminal ileum into the colon. There are numerous diverticula in the sigmoid colon with several in the descending colon. There is no evidence of acute diverticulitis. The uterus is anteverted. Contains a coarse 1 cm calcification which probably a fibroid. In the left adnexa there is a complex septated cyst. Measures approximately 3 x 4 cm in size area the right ovary appears normal. Small amount free fluid is seen in the cul-de-sac. Graft urinary bladder is unopacified and only partially distended. No abnormality seen within the bladder. There is no evidence of adenopathy or abscess within the abdomen or pelvis. Arthritis and scoliosis are present in the mid lumbar spine. 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 There is no associated edema or evidence of ischemia in the bowel. Complex septated cyst in the left ovary Diverticulosis Small amount of free fluid in the pelvis Dr. Hargrove was called with results Interpreted and Authenticated by: Soren Pena 08/20/17
--- NOTE | 2017-08-20 12:02 | Internal Med Progress Note ---
Medical - PN: Subj Patient information: Note initiated : 08/20/17 at 12:02 pm Service Date, if different from initiated Date: [] Patient: Eugenia Barboza 82 y/o F admitted on 08/16/17 for N/V, Hyponatremia, Hypokalemia, UTI, Hypotension. Chief Complaint: [] Interval history: August 16, 2017: History of present illness: Ms. Barboza is a 82 year old female who reportedly has recent issues with nausea and vomiting and abdominal discomfort. She underwent an upper endoscopy a few days ago, which found gastritis and bacterial overgrowth. There was a question of possible celiac disease, but biopsy show only active duodenitis and chronic gastritis, negative for H. pylori or signs of celiac disease. She has had nausea and vomiting and dizziness for the last several days, and has had several falls. Her notes that she has been having problems with diarrhea for several months. He says her primary care doctor and her GI doctor have run numerous tests without a definite answer. Over the last several weeks she has also developed abdominal pain and intermittent nausea and vomiting. She had an endoscopy a few days ago, which showed gastritis and duodenitis. Her says she has actually gotten worse since then, and has had progressive weakness, loss of appetite, and has fallen several times due to being weak when she stands up. The patient says she just feels off balance when she stands. Her notes she has been complaining of feeling cold lately which is much worse than usual. She has had some intermittent headaches. She has an occasional cough, which is nonproductive. Otherwise she denies fevers, overt dizziness, new eye or ear symptoms, sore throat, swollen glands, chest pain or palpitations, shortness of breath or wheezing. She reports intermittent lower abdominal discomfort along with the nausea and vomiting. She says she has not had much diarrhea recently. She denies rectal bleeding or dysuria. Her notes that she has had what was described as severe hypertension for many many years. She has been hospitalized for this in the past, and he says specialist to run numerous test but never really sorted out the cause. Says she also has had trouble with hyponatremia for years, and they have never found a definite cause for that either. [place] her reports she has lost about 30 pounds over the last couple of years. ER evaluation showed initial blood pressure of 80/60, hyponatremia, hypokalemia , leukocytosis, abnormal urinalysis. August 17: Overnight, the patient remained fairly stable. Her blood pressure continues to run rather low. She reports she still quite fatigued, and still has lower abdominal discomfort, but these are symptoms that have been going on for quite some time. She did sit up in a chair today without significant dizziness. She otherwise denies fever chills, headaches or dizziness, chest pain or palpitations, shortness of breath, nausea or vomiting, diarrhea or constipation or dysuria. Lab did call today to say 1 bottle of her blood cultures is growing gram- positive cocci. August 18: Today, the patient's blood cultures are growing gram-positive cocci, and gram- negative and gram-positive rods. Urine is growing Klebsiella. T-max was 99.4 last night. White blood cell count returned to normal just on IV Rocephin. Vancomycin was added last night because of the gram positives in her blood. The patient continues to deny fever or significant chills, though she is often cold. She says she is feeling quite a bit better today, and tolerated [place] toast for breakfast. She denies significant sinus symptoms, other than occasional sinus congestion. She does not report toothache or earache or swollen glands. She denies significant cough or shortness of breath. She has not had further nausea or vomiting, and has not had any stool at all today, let alone diarrhea. She denies dysuria. We have been correcting her numerous lab abnormalities with oral calcium and phosphorus replacement, as well as IV magnesium and potassium and sodium. Spironolactone is on hold due to probable severe dehydration, which is likely secondary to chronic diarrhea. 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 The patient reports she has lost 30 pounds over the last year, unintentionally. August 19: Today, the patient says her energy continues to improve. She seems to be tolerating more oral nutrition as well. Her notes her abdominal pain and appetite definitely worsened after her upper endoscopy last week. He is pleased that she is improving. -Dr. Purdy from [facility] called today, to report that her pelvic ultrasound that was done over there did show a complex ovarian mass. They are recommending that she follow-up with [facility] in [place] after discharge, to look into that further. -Otherwise, patient denies fever chills, headaches or dizziness, chest pain or shortness of breath. She continues to have mild lower abdominal discomfort, but thinks it may be better. She denies dysuria. August 20: Today, the patient notes she continues to improve. She is tolerating an oral diet quite well. She underwent CT of the abdomen today, looking for a source for her bacteremia. This did not show an abscess, but did show a superior mesenteric vein blood clot. I touch base with GI, and they recommended anticoagulation. It also shows a complex cystic mass of her ovary, which was recently diagnosed, and will need [facility] follow-up. Otherwise, she denies fever chills, chest pain or shortness of breath, abdominal pain, nausea or vomiting. Her stools have been mostly soft and formed. She denies dysuria. - Constitutional Vitals: Vital Signs Temp Pulse Resp BP Pulse Ox 99.4 F H 80 16 129/68 100 08/20/17 07:35 08/19/17 03:40 08/20/17 07:35 08/20/17 03:59 08/20/17 07:35 Period Temp Pulse Resp BP Sys/Parks Pulse Ox Last 24 Hr 97.6 F-99.5 F 16-18 118-134/68-76 97-100 Intake and Output 08/19/17 08/20/17 08/20/17 21:59 05:59 13:59 Intake Total 2245 / 2245 1245 / 1245 Output Total 850 / 850 675 / 675 350 / 350 Balance 1395 / 1395 -675 / -675 895 / 895 Weight 120 lb 8 oz Intake & Output: Intake & Output 08/19/17 08/20/17 08/20/17 21:59 05:59 13:59 Intake Total 2245 / 2245 1245 / 1245 Output Total 850 / 850 675 / 675 350 / 350 Balance 1395 / 1395 -675 / -675 895 / 895 Weight 120 lb 8 oz Intake: IV 1255 / 1255 1005 / 1005 Potassium Chloride 10 Meq In 1005 / 1005 1005 / 1005 Dextrose 5%-Ns IV Solution 1, 000 ml @ 100 mls/hr IV .Q10H3M [facility] Rx#:[id number] Vancomycin 1,000 mg In Sodium 250 / 250 Chloride 0.9% 250 ml @ 250 mls/ hr IV Q24H [facility] Rx#:[id number] Oral 990 / 990 240 / 240 Output: Void Amount 700 / 700 675 / 675 Urine/Stool Mix 150 / 150 350 / 350 Other: Meal Dinner Percent of Meal Consumed 75% # Voids 1 1 # Bowel Movements 1 On exam, the patient is awake and alert. She is a little fatigued after going through the oral contrast and then CT of the abdomen this morning. She has eaten food since then, and is keeping it down fine. Neck is supple without obvious lymphadenopathy or JVD. Cardiac exam shows regular rate and rhythm. lungs are clear to auscultation. Abdomen is soft, Bowel sounds are active. Extremities show no edema. neurologic exam is grossly nonfocal. Medical - PN: Obj Da - Labs CBC & Chem 7: 08/20/17 03:31 08/20/17 03:31 Labs: Abnormal Lab Results 08/20/17 08/20/17 08/19/17 03:31 03:31 03:35 RBC 2.99 L Hgb 9.5 L Hct 28.5 L MPV 7.1 L Gran % Lymph % (Auto) 15.4 L Lymph # (Auto) 0.9 L Sodium 127 L 128 L Potassium 5.5 H Chloride 95 L Carbon Dioxide 20 L BUN 4 L 4 L Creatinine 0.4 L 0.4 L Glucose 120 H Uric Acid 1.3 L 1.4 L Calcium 7.8 L 7.4 L Phosphorus 2.6 L 2.1 L GGT 48 H 50 H Total Protein 4.6 L 4.5 L Albumin 2.1 L 2.0 L Albumin/Globulin Ratio 0.8 L 0.8 L Triglycerides 08/19/17 08/18/17 08/18/17 03:35 03:46 03:46 RBC 3.01 L 2.95 L Hgb 9.6 L 9.6 L Hct 28.4 L 28.6 L MPV 7.2 L 7.2 L Gran % 82.7 H 87.1 H Lymph % (Auto) 9.4 L 6.3 L Lymph # (Auto) 0.6 L 0.5 L Sodium 128 L Potassium Chloride Carbon Dioxide 19 L BUN 5 L Creatinine 0.5 L Glucose 119 H Uric Acid 2.0 L Calcium 7.0 L Phosphorus 1.7 L GGT 44 H Total Protein 4.4 L Albumin 1.8 L Albumin/Globulin Ratio 0.7 L Triglycerides 180 H August 20: CT of the abdomen: IMPRESSION: 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 There is no associated edema or evidence of ischemia in the bowel. Complex septated cyst in the left ovary. Diverticulosis. Small amount of free fluid in the pelvis Blood cultures from August 16, are growing an anaerobic gram-negative bacillus , and an anaerobic gram-positive pete, and coag negative staph. Other ideas still pending. August 18: Echocardiogram: Shows normal left ventricle with normal systolic function. Mildly dilated left atrium. Ejection fraction 70%. No signs of valvular vegetations. August 17: Blood cultures: One bottle grew coag negative staph, thought to be a contaminant. A gram-positive bacillus and coag-negative bacillus are also growing, ID to follow. I believe a second bottle is growing both gram-negative bacillus and gram- positive bacillus. Lactic acid is normal. Pro-calcitonin is elevated at 3.85, which could be consistent with sepsis. August 16: Urinalysis shows pH of 6, 25 leukocyte esterase, 7 white blood cells, few bacteria. Culture shows 20-30,000 Klebsiella, pansensitive. Lactic acid: Is normal at 0.7 Chest x-ray: FINDINGS: The heart is borderline enlarged. Mediastinum and pulmonary vasculature are unremarkable. Lungs are clear. No effusions.IMPRESSION: No acute disease CT abdomen pelvis done on 07/14/17 shows complex cyst left ovary, diverticulosis , enteritis, inflammation in the stomach. Pelvic US done 08/13 shows Tubular serpiginous region of cystic abnormality left adnexa. More later there is a large cyst partially imaged AP diameter 3.3cm and a hyperechoic septation EGD shows Query celiac. Gastritis. Duodenal diverticuli. Bacterial overgrowth. Meds: Medications Acetaminophen (Tylenol) 650 mg PO Q6HP PRN PRN Reason: PAIN/FEVER > 101 Last Admin: 08/18/17 17:36 Dose: 650 mg Albuterol Sulfate (Ventolin) 2.5 mg NEB Q4HRT PRN PRN Reason: Shortness Of Breath Or Wheezing Calcium/Vitamin D (Calcium W/Vit D3) 500 mg PO BID [facility] Last Admin: 08/20/17 10:13 Dose: 500 mg Ceftriaxone Sodium (Rocephin) 1 gm IV DAILY [facility] Last Admin: 08/20/17 10:14 Dose: 1 gm Docusate Sodium (Colace) 100 mg PO BID PRN PRN Reason: Constipation Fluticasone Propionate (Flonase) 1 spray NS BIDP PRN PRN Reason: Allergic Symptoms Last Admin: 08/20/17 10:13 Dose: 1 spray Heparin Sodium (Porcine) (Heparin) 5,000 unit SQ Q12 [facility] Last Admin: 08/20/17 10:13 Dose: 5,000 unit Potassium Chloride 10 meq/ (Dextrose/Sodium Chloride) 1,005 mls @ 100 mls/hr IV .Q10H3M [facility] Last Admin: 08/20/17 08:48 Dose: 100 mls/hr Vancomycin HCl 1,000 mg/ (Sodium Chloride) 250 mls @ 250 mls/hr IV Q24H [facility] Last Admin: 08/20/17 10:14 Dose: 250 mls/hr Lorazepam (Ativan) 0.5 mg PO HSP PRN PRN Reason: ANXIETY/SEDATION Last Admin: 08/16/17 21:56 Dose: 0.5 mg Magnesium Hydroxide (Milk Of Magnesia) 30 ml PO DAILYP PRN PRN Reason: Constipation Metoprolol Succinate (Toprol Xl) 25 mg PO DAILY [facility] Last Admin: 08/20/17 10:14 Dose: 25 mg Ondansetron HCl (Zofran) 4 mg IV Q4HP PRN PRN Reason: Nausea And Vomiting Pantoprazole Sodium (Protonix) 40 mg IV BIDAC [facility] Last Admin: 08/20/17 07:34 Dose: 40 mg Potassium/Phosphorus/Sodium (Neutra Phos) 2 packet PO QNOON [facility] Last Admin: 08/19/17 16:23 Dose: 2 packet Vancomycin HCl (Vancomycin Per Pharmacy) 1 order IV UD [facility] Vitamin D (Vitamin D3) 1,000 unit PO BID [facility] Last Admin: 08/20/17 10:14 Dose: 1,000 unit Medical - PN: A/P - Time Spent With Patient Total time spent is greater than 50% in coordination of care (as documented) at patient's floor/unit and/or counseling patient: 25 - 35 minutes (1) Dehydration Status: Acute Current Visit: Yes (2) Nausea and vomiting in adult Status: Acute Current Visit: Yes (3) Pyuria Status: Acute Current Visit: Yes (4) Hypotension Status: Acute Current Visit: Yes (5) Gastritis and duodenitis Status: Chronic Current Visit: Yes (6) Hyponatremia Status: Acute Current Visit: Yes (7) Hypokalemia Status: Acute Current Visit: Yes - Narrative A/P Narrative: #1. Cardiac. Patient presents with dizziness, falls, hypotension, electrolyte abnormalities. It would appear that her hypotension was at least partly due to her blood pressure medications, in the setting of ongoing nausea and vomiting and dehydration. -She continues on IV fluids, and blood pressure is gradually improving. We have been replacing sodium, calcium, phosphorus, magnesium. Blood pressure is closer to baseline now. We have cut her blood pressure medications down to metoprolol only. Norvasc, lisinopril, and spironolactone are all still on hold. -( Discussed with the patient and her that if she is having ongoing diarrhea, weight loss, poor p.o. intake, she probably should not be taking all of her blood pressure medications. I advised her to try checking her blood pressure prior to taking her morning meds, and then at least get the diuretic if her blood pressure is low, or call her regular doctor for advice.) 2. GI. She has ongoing GI symptoms. She is under the care of Dr. Green as an outpatient. EGD showed both gastritis and duodenitis. -Change oral to IV PPI. -Per GI, she also had duodenal diverticuli with presumed bacterial overgrowth. This may have caused symptoms of chronic steatorrhea. She may be feeling better as the IV antibiotics address this. -Hemoglobin is lower and her baseline appears closer to 10.5. She reports that Dr. Green plans on doing a colonoscopy soon as well. It is unclear if she could have a subacute GI bleed, or if this is more a chronic nutritional issue. Guaiac all stools. Continue to monitor. -Patient underwent abdominal CT today, that shows superior mesenteric vein DVT. She will be started on AC therapy Lovenox, followed by Coumadin.. It is unclear how much this contributes to her GI symptoms. -Nutrition consult. 3. Endocrine. Patient presents with hyponatremia, hypokalemia, hypochloremia, all possibly due to medications and ongoing vomiting issues. -Urine sodium was low, and hyponatremia is improving with IV fluids. Continue same. -Replace electrolytes and minerals as indicated. -Vitamin D is borderline low. Replace calcium and vitamin D orally. 4. CODE STATUS: Code. will act as her POA. 5. DVT prophylaxis: Subcu heparin. #6. Infectious disease. Urinalysis is mildly abnormal. Covered with Rocephin for possible UTI pending cultures. -Today her urine culture is growing only 20,000 pansensitive Klebsiella. However, but cultures are growing 3 different organisms. One appears to be staph epi, which is considered to be a contaminant. She is also growing a gram- positive and gram-negative pete. ID is pending. Source of these organisms is unclear. - She has only a low-grade fever, and white blood cell count is back to normal. Echocardiogram is fairly normal without signs of vegetations. CT scan did not show obvious abscess or other source of infection. She does, however, have some fluid in the pelvis and an ovarian mass. It is unclear if that might be playing a role. Ordered echocardiogram given her relative hypotension and to look for signs of vegetations. #7. [facility]. Dr. Purdy from [facility] called to discuss the patient's recent pelvic ultrasound. There is a complex ovarian mass, and they said she needs to be referred to [facility] for further evaluation of that. This will likely have to happen after she is discharged. Medical - PN: Qual - VTE Deep Vein Thrombosis/Pulmonary Embolism Present on Admission: No
[2017-08-20] MEDS: NEUTRA PHOS 1 PACKET PO SCH (13:07)
[2017-08-20] MEDS ORDERED: WARFARIN 3 MG TABLET PO ONE (15:00)
[2017-08-20] MEDS: ACETAMINOPHEN 325 MG TABLET PO PRN (19:16)
[2017-08-20] MEDS: ENOXAPARIN 60 MG/0.6 ML SYRINGE SQ SCH (20:40)
[2017-08-21] MEDS: POTASSIUM CHLORIDE 10 MEQ in DEXTROSE 5%-NS 1,000 ML IV SCH ×2 (03:11→07:25)
[2017-08-21] MEDS: PANTOPRAZOLE 40 MG VIAL IV SCH (07:28)
[2017-08-21] MEDS ORDERED: POTASSIUM CHLORIDE 10 MEQ in DEXTROSE 5%-NS 1,000 ML IV SCH (07:45)
[2017-08-21] MEDS: METOPROLOL SUCCINATE 25 MG TAB.XL.24H PO SCH (10:02)
[2017-08-21] MEDS: VITAMIN D3 1,000 UNIT TABLET PO SCH (10:07)
[2017-08-21] MEDS: CALCIUM W/VIT D3 500 MG TABLET PO SCH (10:07)
[2017-08-21] MEDS: ENOXAPARIN 60 MG/0.6 ML SYRINGE SQ SCH (10:07)
[2017-08-21] MEDS: cefTRIAXone 1 GM VIAL IV SCH (10:07)
[2017-08-21] MEDS: VANCOMYCIN 1,000 MG in 0.9 % SODIUM CHLORIDE 250 ML IV SCH (12:29)
--- NOTE | 2017-08-21 12:35 | Discharge Summary ---
Medical - DS: Prov Patient information: Note initiated : 08/21/17 at 12:32 pm Patient: Eugenia Barboza 82 y/o F admitted on 08/16/17 for N/V, Hyponatremia, Hypokalemia, UTI, Hypotension. Date of admission: 08/16/17 16:45 Discharge date: 08/21/17 Primary care physician: Emerson Connors, at [facility] , phone number [phone] Admitting clinician: Haleigh Arita Consults: 08/16/17 13:09 Consult to Physician [CONS] Stat Comment: Consulting Provider: Haleigh Arita Reason For Exam: Physician to Consult 08/18/17 10:24 Consult to Physician [CONS] Routine Comment: abd pain, anemia, wt loss, bacteremia Consulting Provider: Dale Swift Reason For Exam: Physician to Consult Attending physician on discharge: Haleigh Arita Medical - DS: Meds - Discharge Medications Active and Home Medications: Discharge medications: Rocephin 1 g IV every 24 hours Vancomycin 1000 mg daily, or as per pharmacy Lovenox 50 mg subcu twice daily until warfarin therapeutic Warfarin 3 mg daily, or as per pharmacy Metoprolol XL 25 mg daily Tylenol 650 mg every 6 hours as needed Albuterol nebs 2.5 mg every 4 hours as needed Calcium plus D5 100 mg p.o. twice daily Colace 100 mg twice daily as needed Flonase 1 spray each nostril twice daily as needed allergic rhinitis Lorazepam 0.5 mg nightly as needed Milk of magnesia 30 mL daily as needed Zofran 4 mg IV every 4 hours as needed nausea Protonix 40 mg IV twice daily for gastritis D5 half-normal saline +10 mEq of potassium at 50 mL/h, probably could be discontinued. Neutra-Phos 2 packets daily at noon Vitamin D 1000 units p.o. twice daily for borderline vitamin D deficiency Spironolactone, amlodipine, lisinopril are all on hold regarding hypotension and severe dehydration. Previous home Medications: Ergocalciferol (Vitamin D2) [Vitamin D2] 50,000 unit PO WEEKLY 08/16/17 [ History Confirmed 08/16/17 Last Taken Unknown] Lisinopril [Zestril] 20 mg PO DAILY 08/16/17 [History Confirmed 08/16/17 Last Taken Unknown] Metoprolol Succinate 25 mg PO DAILY 08/16/17 [History Confirmed 08/16/17 Last Taken Unknown] Omeprazole [PriLOSEC] 20 mg PO DAILY 08/16/17 [History Confirmed 08/16/17 Last Taken Unknown] Spironolactone [Aldactone] 25 mg PO DAILY 08/16/17 [History Confirmed 08/16/17 Last Taken Unknown] amLODIPine [Norvasc] 5 mg PO DAILY 08/16/17 [History Confirmed 08/16/17 Last Taken Unknown] Medical - DS: [facility] Hospital course: Mrs. Barboza is a 82 year old F August 16, 2017: History of present illness: Ms. Barboza is a 82 year old female who reportedly has recent issues with nausea and vomiting and abdominal discomfort. She underwent an upper endoscopy a few days ago, which found gastritis and bacterial overgrowth. There was a question of possible celiac disease, but biopsy show only active duodenitis and chronic gastritis, negative for H. pylori or signs of celiac disease. She has had nausea and vomiting and dizziness for the last several days, and has had several falls. Her notes that she has been having problems with diarrhea for several months. He says her primary care doctor and her GI doctor have run numerous tests without a definite answer. Over the last several weeks she has also developed abdominal pain and intermittent nausea and vomiting. She had an endoscopy a few days ago, which showed gastritis and duodenitis. Her says she has actually gotten worse since then, and has had progressive weakness, loss of appetite, and has fallen several times due to being weak when she stands up. The patient says she just feels off balance when she stands. Her notes she has been complaining of feeling cold lately which is much worse than usual. She has had some intermittent headaches. She has an occasional cough, which is nonproductive. Otherwise she denies fevers, overt dizziness, new eye or ear symptoms, sore throat, swollen glands, chest pain or palpitations, shortness of breath or wheezing. She reports intermittent lower abdominal discomfort along with the nausea and vomiting. She says she has not had much diarrhea recently. She denies rectal bleeding or dysuria. Her notes that she has had what was described as severe hypertension for many many years. She has been hospitalized for this in the past, and he says specialist to run numerous test but never really sorted out the cause. Says she also has had trouble with hyponatremia for years, and they have never found a definite cause for that either. her reports she has lost about 30 pounds over the last year. ER evaluation showed initial blood pressure of 80/60, hyponatremia, hypokalemia , leukocytosis, abnormal urinalysis. August 17: Overnight, the patient remained fairly stable. Her blood pressure continues to run rather low. She reports she still quite fatigued, and still has lower abdominal discomfort, but these are symptoms that have been going on for quite some time. She did sit up in a chair today without significant dizziness. She otherwise denies fever chills, headaches or dizziness, chest pain or palpitations, shortness of breath, nausea or vomiting, diarrhea or constipation or dysuria. Lab did call today to say 1 bottle of her blood cultures is growing gram- positive cocci. August 18: Today, the patient's blood cultures are growing gram-positive cocci, and gram- negative and gram-positive rods. Urine is growing Klebsiella. T-max was 99.4 last night. White blood cell count returned to normal just on IV Rocephin. Vancomycin was added last night because of the gram positives in her blood. The patient continues to deny fever or significant chills, though she is often cold. She says she is feeling quite a bit better today, and tolerated Sinhala toast for breakfast. She denies significant sinus symptoms, other than occasional sinus congestion. She does not report toothache or earache or swollen glands. She denies significant cough or shortness of breath. She has not had further nausea or vomiting, and has not had any stool at all today, let alone diarrhea. She denies dysuria. We have been correcting her numerous lab abnormalities with oral calcium and phosphorus replacement, as well as IV magnesium and potassium and sodium. Spironolactone is on hold due to probable severe dehydration, which is likely secondary to chronic diarrhea. 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 The patient reports she has lost 30 pounds over the last year, unintentionally. August 19: Today, the patient says her energy continues to improve. She seems to be tolerating more oral nutrition as well. Her notes her abdominal pain and appetite definitely worsened after her upper endoscopy last week. He is pleased that she is improving. -Dr. Purdy from [facility] called today, to report that her pelvic ultrasound that was done over there did show a complex ovarian mass. They are recommending that she follow-up with [facility] in [place] , to look into that further. -Otherwise, patient denies fever chills, headaches or dizziness, chest pain or shortness of breath. She continues to have mild lower abdominal discomfort, but thinks it may be better. She denies dysuria. August 20: Today, the patient notes she continues to improve. She is tolerating an oral diet quite well. She underwent CT of the abdomen today, looking for a source for her bacteremia. This did not show an abscess, but did show a superior mesenteric vein blood clot. I touch base with GI, and they recommended anticoagulation. It also shows a complex cystic mass of her ovary, which was recently diagnosed, and will need [facility] follow-up. Otherwise, she denies fever chills, chest pain or shortness of breath, abdominal pain, nausea or vomiting. Her stools have been mostly soft and formed. She denies dysuria. August 21: Hospital course: -This patient was admitted with severe hypotension and severe electrolyte abnormalities. She has had ongoing steatorrhea for months, associated with significant weight loss and abdominal pain. She had rather marked improvement after hydration, correction of lab abnormalities, and IV antibiotics. GI initially felt this was due to treating bacterial overgrowth in the duodenal diverticuli. She subsequently grew 3 different organisms from her blood cultures. So far it is not been clear what the source of the bacteremia is. Our concern is that there is an intra-abdominal source. Abdominal CT did not show definite abscess, but does show a cystic mass of the ovary. This was discussed with Dr. Rothman of [facility] at [place] today. She looked at the scan and does not feel this is a malignancy, but says there is a chance there is an abscess there that could be drained. Because we do not know the source of her bacteremia, it is uncertain how long to continue with antibiotics. The patient would benefit from a ID consult. Transthoracic echocardiogram was essentially normal, and did not show signs of vegetations. The case was then reviewed with Dr. Bradford, hospitalist. She has agreed to accept the patient in transfer. 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 The patient was started on Lovenox and warfarin. So far she seems to be tolerating this. GI feels that this clot explain some of the other abnormalities on her scan. The patient did present with a lower hemoglobin than her baseline. She has been diagnosed with gastritis, so this may be the source. This will need to be watched closely as we have just started the anticoagulation therapy. -The patient severe fatigue and weakness have improved markedly since being rehydrated and given IV antibiotics. She does continue on Rocephin and vancomycin at this time. Sensitivities are not available on the organisms growing from her blood. -Patient has a history of severe hypertension, requiring 4 medications. All but her metoprolol had been discontinued, and blood pressures are finally up to a normal reading. Appetite has improved, and she seems to be hydrating orally, so IV fluids can probably be discontinued at this time. On exam, the patient is awake and alert. She is overall feeling better, and strength is improving. Neck is supple without obvious lymphadenopathy or JVD. Cardiac exam shows regular rate and rhythm. lungs are clear to auscultation. Abdomen is soft, Bowel sounds are active. Extremities show no edema. neurologic exam is grossly nonfocal. Assessment and plan: #1. Cardiac. Patient presents with dizziness, falls, hypotension, electrolyte abnormalities. It would appear that her hypotension was at least partly due to her blood pressure medications, in the setting of ongoing nausea and vomiting and dehydration. -Hyponatremia, hypocalcemia, hypophosphatemia, hypomagnesemia overall improved. Dehydration appears resolved. Blood pressure is closer to baseline now. We have cut her blood pressure medications down to metoprolol only. Norvasc, lisinopril, and spironolactone are all still on hold. -( Discussed with the patient and her that if she is having ongoing diarrhea, weight loss, poor p.o. intake, she probably should not be taking all of her blood pressure medications. I advised her to try checking her blood pressure prior to taking her morning meds, and then at least get the diuretic if her blood pressure is low, or call her regular doctor for advice.) 2. GI. She has ongoing GI symptoms. She is under the care of Dr. Green as an outpatient. EGD showed both gastritis and duodenitis. -Change oral to IV PPI. -Per GI, she also had duodenal diverticuli with presumed bacterial overgrowth. This may have caused symptoms of chronic steatorrhea. She may be feeling better as the IV antibiotics address this. -Hemoglobin is lower and her baseline appears closer to 10.5. She reports that Dr. Green plans on doing a colonoscopy soon as well. It is unclear if she could have a subacute GI bleed, or if this is more a chronic nutritional issue. Guaiac all stools. Continue to monitor. -Patient underwent abdominal CT, that shows superior mesenteric vein DVT. She will be started on AC therapy Lovenox, followed by Coumadin.. It is unclear how much this contributes to her GI symptoms. -Nutrition consult. 3. Endocrine. Patient presents with hyponatremia, hypokalemia, hypochloremia, all possibly due to medications and ongoing vomiting issues. -Urine sodium was low, and hyponatremia is improving with IV fluids. Continue same. -Replace electrolytes and minerals as indicated. -Vitamin D is borderline low. Replace calcium and vitamin D orally. 4. CODE STATUS: Code. will act as her POA. 5. DVT prophylaxis: Subcu heparin. #6. Infectious disease. Urinalysis is mildly abnormal. Covered with Rocephin for possible UTI pending cultures. -Today her urine culture is growing only 20,000 pansensitive Klebsiella. However, but cultures are growing 3 different organisms. One appears to be staph epi, which is considered to be a contaminant. She is also growing to Bacteroides species, and also an anaerobic gram-positive pete. These have not been fully ID and we do not have sensitivities at this time. - She has had only a low-grade fever, which is back to normal today, and white blood cell count is back to normal. Echocardiogram is fairly normal without signs of vegetations. CT scan did not show obvious abscess or other source of infection. She does, however, have some fluid in the pelvis and an ovarian mass. It is unclear if that might be playing a role. #7. [facility]. Dr. Purdy from [facility] called to discuss the patient's recent pelvic ultrasound. There is a complex ovarian mass, and they said she needs to be referred to [facility] for further evaluation of that. Case was reviewed with [facility] today, and they agree that if she is transferred to [place], they will do a consultation to see if her mass could be drained, to investigate for abscess, etc. Discharge diagnosis: Bacteremia. SMV thrombosis. Ovarian mass. Hyponatremia. - Time Spent with Patient Total time spent providing and/or coordinating discharge services: Greater than 30 minutes Medical - DS: Exam - Constitutional Vitals: Vital Signs Temp Pulse Pulse Resp BP BP Pulse Ox 08/21/17 07:49 81 17 99 08/21/17 03:39 98.4 F 77 77 18 127/66 99 08/20/17 23:34 97.9 F 76 78 16 124/78 98 08/20/17 20:00 98.0 F 78 18 130/70 99 08/20/17 16:00 99.5 F H 18 126/78 99 Intake and Output 08/20/17 08/21/17 08/21/17 21:59 05:59 13:59 Intake Total 1825 / 1825 500 / 500 1435 / 1435 Output Total 1600 / 1600 1050 / 1050 250 / 250 Balance 225 / 225 -550 / -550 1185 / 1185 Intake: IV 1005 / 1005 1075 / 1075 Potassium Chloride 10 Meq In 1005 / 1005 1075 / 1075 Dextrose 5%-Ns IV Solution 1, 000 ml @ 100 mls/hr IV .[id number] [facility] Rx#:[id number] Oral 820 / 820 500 / 500 360 / 360 Output: Void Amount 1100 / 1100 1050 / 1050 Urine/Stool Mix 500 / 500 250 / 250 Other: Meal Dinner Breakfast Percent of Meal Consumed 75% 75% Feeding Ability Assist with Tray Set Up Assist with Tray Set Up # Voids 1 # Bowel Movements 350 1 Weight 116 lb 8 oz Length of stay intake and output, shows she is positive for about 10 L of fluid since admission. Medical - DS: Data Labs on day of discharge: Labs from last 24 hours 08/21/17 08/21/17 10:13 03:30 PT 14.8 H INR 1.1 Vancomycin Trough 7.0 Preliminary micro results at discharge 08/16/17 14:44 Blood Culture - Preliminary Blood Coagulase negative staph Anaerobic gram positive rods Bacteroides sp, fragilis group 08/16/17 14:50 Blood Culture - Preliminary Blood Bacteroides sp, fragilis group Bacteroides sp, fragilis group#2 Anaerobic gram positive rods Ross 6: CBC: Shows white blood cell count of 5800, hemoglobin 9.5, hematocrit 28.5, platelets 403,000. 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 There is no associated edema or evidence of ischemia in the bowel. Complex septated cyst in the left ovary. Diverticulosis. Small amount of free fluid in the pelvis Blood cultures from August 16, are growing an anaerobic gram-negative bacillus , and an anaerobic gram-positive pete, and coag negative staph. Other ideas still pending. August 18: Echocardiogram: Shows normal left ventricle with normal systolic function. Mildly dilated left atrium. Ejection fraction 70%. No signs of valvular vegetations. August 17: Blood cultures: One bottle grew coag negative staph, thought to be a contaminant. A gram-positive bacillus and coag-negative bacillus are also growing, ID to follow. I believe a second bottle is growing both gram-negative bacillus and gram- positive bacillus. Lactic acid is normal. Pro-calcitonin is elevated at 3.85, which could be consistent with sepsis. Vitamin D, 25-hydroxy: Is low at 25 CBC: White blood cell count 9000, hemoglobin 9.5, hematocrit 28 Chemistries: Sodium 125, potassium 3.9, chloride 92, CO2 21, glucose 144 Calcium 6.8, phosphorus 2.2, magnesium 1.2 August 16: CBC: White blood cell count is 12,000, hemoglobin 12, hematocrit 35.9, platelets 252,000. Differential shows 87% neutrophils, 4% lymphocytes Chemistry panel: Sodium 118, potassium 2.7, chloride 79, CO2 23, anion gap 16, BUN 20, creatinine 0.7, glucose 112 Calcium 7.9, ionized calcium 0.96, alkaline phosphatase 125, albumin 2.5 Urinalysis shows pH of 6, 25 leukocyte esterase, 7 white blood cells, few bacteria. Culture shows 20-30,000 Klebsiella, pansensitive. Lactic acid: Is normal at 0.7 Chest x-ray: FINDINGS: The heart is borderline enlarged. Mediastinum and pulmonary vasculature are unremarkable. Lungs are clear. No effusions.IMPRESSION: No acute disease CT abdomen pelvis done on 07/14/17 shows complex cyst left ovary, diverticulosis , enteritis, inflammation in the stomach. Pelvic US done 08/13 shows Tubular serpiginous region of cystic abnormality left adnexa. More later there is a large cyst partially imaged AP diameter 3.3cm and a hyperechoic septation EGD shows Query celiac. Gastritis. Duodenal diverticuli. Bacterial overgrowth. Medical - DS: A/P - Patient/Caregiver Discharge Instructions Activity: as per physical therapy Diet: Regular Diet - Problem Maintenance (1) Dehydration Status: Acute (2) Nausea and vomiting in adult Status: Acute (3) Pyuria Status: Acute (4) Hypotension Status: Acute (5) Gastritis and duodenitis Status: Chronic (6) Hyponatremia Status: Acute (7) Hypokalemia Status: Acute - Follow up Plan Follow up with: Emerson Connors MD [Primary Care Provider] - Disposition: [facility] Prognosis: Good Rehab Potential: Good Overall status at discharge: patient is progressing back to baseline Medical - DS: Qual - VTE Deep Vein Thrombosis/Pulmonary Embolism Present on Admission: No
[2017-08-21] MEDS: NEUTRA PHOS 1 PACKET PO SCH (12:58)
[2017-08-21] MEDS ORDERED: LORazepam 0.5 MG TABLET PO ONE (13:46)
[2017-08-21] MEDS ORDERED: WARFARIN 3 MG TABLET PO ONE (14:00)
[2017-08-21] MEDS: ACETAMINOPHEN 325 MG TABLET PO PRN (14:02)
[2017-08-21] MEDS: FLUTICASONE PROPIONATE SPRAY.NAS NS PRN (14:02)
[2017-08-22] MEDS ORDERED: POTASSIUM CHLORIDE 10 MEQ in DEXTROSE 5%-NS 1,000 ML IV SCH (02:00)
== END 2017-08-21 14:30 | disposition short-term general hospital (02) | DRG 640 ==
LOC: ED 11:02 → ICU 16:45
PROVIDERS: ADMIT Internal Medicine; ATTEND Internal Medicine

== ENCOUNTER 2017-09-14 17:02 | Observation (INO) ==
--- NOTE | 2017-09-14 17:25 | Emergency Department Note ---
General Adult HPI - General Chief complaint: Blood Pressure Problem Stated complaint: high blood pressure, headache Time Seen by Provider: 09/14/17 17:19 Source: patient, family Mode of arrival: ambulatory Limitations: no limitations - History of Present Illness HPI Narrative: This patient's blood pressure is been high at home today the right now it is 154 /67. He has had some mild headache today with that is improving after taking a couple Tylenol and hour ago. She had a recent admission in [place] for sepsis. She feels like she is doing better from that standpoint. - Related Data Home Medications Medication Instructions Recorded Confirmed Metoprolol Succinate 25 mg PO DAILY 08/16/17 09/14/17 Apixaban [Eliquis] 5 mg PO BID 09/14/17 09/14/17 Lisinopril [Zestril] 20 mg PO DAILY 09/14/17 09/14/17 Omeprazole [Prilosec] 1 tablet PO DAILY 09/14/17 09/14/17 Spironolactone [Aldactone] 25 mg PO DAILY 09/14/17 09/14/17 amLODIPine [Norvasc] 5 mg PO DAILY 09/14/17 09/14/17 Allergies Allergy/AdvReac Type Severity Reaction Status Date / Time No Known Drug Allergies Allergy Verified 08/16/17 11:03 Review of Systems All systems ED: reviewed and negative except as stated. Past Medical History - Past Medical History [facility] Narrative: Medical History Hyponatremia (Acute) Hypokalemia (Acute) UTI (urinary tract infection) (Acute) Hypotension (Acute) Dehydration (Acute) Nausea and vomiting in adult (Acute) Pyuria (Acute) Hypotension (Acute) Gastritis and duodenitis (Chronic) Small intestinal bacterial overgrowth (Acute) Medical history: Reports: hypertension, other (gastritis) [employer] history: Reports: non-contributory Surgical history ED: Reports: cholecystectomy - Social History smoking status: Never smoker Physical Exam Limitations: no limitations General appearance: alert Head: atraumatic Eye: Present: normal appearance ENT: normal exam Neck: Present: normal inspection Chest: Present: normal inspection Respiratory: Present: normal lung sounds bilaterally Cardiovascular: Present: regular rate, normal rhythm, normal heart sounds Abdominal: Present: soft. Absent: distention, tenderness Neurological: Present: alert Psychiatric: Present: normal affect, normal mood Skin: Present: warm, dry, intact, normal color Course Vital Signs Temperature 97.4 F 09/14/17 17:02 Pulse Rate 78 09/14/17 17:02 Respiratory Rate 16 09/14/17 17:02 Blood Pressure 151/77 09/14/17 17:02 Pulse Oximetry (%) 100 09/14/17 17:02 Temperature 98.0 F 09/15/17 04:01 Pulse Rate 65 09/14/17 22:04 Respiratory Rate 16 09/15/17 04:18 Blood Pressure 92/62 09/15/17 04:18 Pulse Oximetry (%) 99 09/15/17 04:18 Medical Decision Making - MDM Narrative Medical decision making narrative: This patient was admitted to the hospital for hyponatremia with a sodium of 116. - Lab Data Lab results reviewed: Yes I reviewed the patient's lab results. Result diagrams: 09/14/17 17:29 09/15/17 06:00 Lab Results 09/14/17 09/14/17 09/14/17 Range/Units 17:29 17:29 17:29 WBC 5.6 (4.5-11.0) K/mcL RBC 3.50 L (4.00-5.20) M/mcL Hgb 11.1 L (12.0-15.0) g/dL Hct 32.7 L (36.0-48.0) % MCV 93.3 (80.0-100.0) fL MCH 31.6 (26.0-34.0) pg MCHC 33.9 (31.0-36.0) g/dL RDW 13.4 (11.5-14.5) % Plt Count 541 H (140-440) K/mcL MPV 7.0 L (7.4-10.4) fL Gran % 73.9 (38.0-78.0) % Lymph % (Auto) 18.0 (15.5-49.0) % [place] % (Auto) 7.5 (1.0-12.0) % Eos % (Auto) 0 (0.0-7.0) % Baso % (Auto) 0.6 (0.0-2.0) % Gran # 4.1 (1.8-8.0) K/mcL Lymph # (Auto) 1.0 L (1.5-4.8) K/mcL [place] # (Auto) 0.4 (0.1-0.9) K/mcL Eos # (Auto) 0 (0.0-0.7) K/mcL Baso # (Auto) 0 (0.0-0.3) K/mcL Sodium 116 L* (133-145) mmol/L Potassium 4.6 (3.3-5.1) mmol/L Chloride 82 L (96-108) mmol/L Carbon Dioxide 21 L (22-30) mmol/L Anion Gap 13.0 (8-16) BUN 13 (8-23) mg/dl Creatinine 0.7 (0.6-1.1) mg/dl GFR Calculation 80 Glucose 106 H (70-105) mg/dL Calcium 8.6 (8.6-10.4) mg/dl Total Bilirubin 0.4 (0.0-1.0) mg/dL AST 26 (0-37) U/l ALT 15 (0-40) U/l Alkaline Phosphatase 66 (39-117) U/L Troponin T < 0.01 (0-0.03) ng/ml Total Protein 6.4 (5.9-8.4) gm/dL Albumin 3.4 (3.2-5.2) gm/dL Globulin 3.0 (2.2-3.7) gm/dL Albumin/Globulin Ratio 1.1 (1.0-2.3) Urine Color Urine Appearance Urine pH (5.0-9.0) Ur Specific [place] (1.000-1.035) Urine Protein (NEG) mg/dL Urine Glucose (UA) (NEG) mg/dL Urine Ketones (NEG) mg/dL Urine Occult Blood (<0.03) mg/dL Urine Nitrate (NEG) Urine Bilirubin (NEG) mg/dL Urine Urobilinogen (NEG) mg/dL Ur Leukocyte Esterase (NEG) /uL Urine RBC (0-1) /hpf Urine WBC (0-4) /hpf Ur Squamous Epith Cells (0-4) /hpf Ur Transition Epith Cell (0-2) /hpf Urine Bacteria (0) /hpf Ur Culture Indicated? Urine Osmolality (80-1000) mOsm/kg Ur Random Sodium mmol/L 09/14/17 09/14/17 Range/Units 18:08 18:08 WBC (4.5-11.0) K/mcL RBC (4.00-5.20) M/mcL Hgb (12.0-15.0) g/dL Hct (36.0-48.0) % MCV (80.0-100.0) fL MCH (26.0-34.0) pg MCHC (31.0-36.0) g/dL RDW (11.5-14.5) % Plt Count (140-440) K/mcL MPV (7.4-10.4) fL Gran % (38.0-78.0) % Lymph % (Auto) (15.5-49.0) % [place] % (Auto) (1.0-12.0) % Eos % (Auto) (0.0-7.0) % Baso % (Auto) (0.0-2.0) % Gran # (1.8-8.0) K/mcL Lymph # (Auto) (1.5-4.8) K/mcL [place] # (Auto) (0.1-0.9) K/mcL Eos # (Auto) (0.0-0.7) K/mcL Baso # (Auto) (0.0-0.3) K/mcL Sodium (133-145) mmol/L Potassium (3.3-5.1) mmol/L Chloride (96-108) mmol/L Carbon Dioxide (22-30) mmol/L Anion Gap (8-16) BUN (8-23) mg/dl Creatinine (0.6-1.1) mg/dl GFR Calculation Glucose (70-105) mg/dL Calcium (8.6-10.4) mg/dl Total Bilirubin (0.0-1.0) mg/dL AST (0-37) U/l ALT (0-40) U/l Alkaline Phosphatase (39-117) U/L Troponin T (0-0.03) ng/ml Total Protein (5.9-8.4) gm/dL Albumin (3.2-5.2) gm/dL Globulin (2.2-3.7) gm/dL Albumin/Globulin Ratio (1.0-2.3) Urine Color Straw Urine Appearance Clear Urine pH 8.0 (5.0-9.0) Ur Specific [place] 1.003 (1.000-1.035) Urine Protein Neg (NEG) mg/dL Urine Glucose (UA) Negative (NEG) mg/dL Urine Ketones Neg (NEG) mg/dL Urine Occult Blood Neg (<0.03) mg/dL Urine Nitrate Neg (NEG) Urine Bilirubin Neg (NEG) mg/dL Urine Urobilinogen Neg (NEG) mg/dL Ur Leukocyte Esterase 25 A (NEG) /uL Urine RBC < 1 (0-1) /hpf Urine WBC 1 (0-4) /hpf Ur Squamous Epith Cells < 1 (0-4) /hpf Ur Transition Epith Cell < 1 (0-2) /hpf Urine Bacteria 0 (0) /hpf Ur Culture Indicated? No Urine Osmolality 128 (80-1000) mOsm/kg Ur Random Sodium 37 mmol/L Disposition Pt seen by CO[employer]DER/PA only: No Clinical Impression: Hyponatremia Disposition: Xfer As Inpt ([facility]) Condition: Good
[2017-09-14] MEDS ORDERED: AZITHROMYCIN 250 MG TABLET PO ONE (18:08)
[2017-09-14 18:20] LABS: Basophils # (Auto) 0 K/mcL (0.0-0.3); Basophils % (Auto) 0.6 % (0.0-2.0); Eosinophils # (Auto) 0 K/mcL (0.0-0.7); Eosinophils % (Auto) 0 % (0.0-7.0); Granulocytes % (Auto) 73.9 % (38.0-78.0); Mean Cell Volume 93.3 fL (80.0-100.0); Mean Corpuscular HGB Conc 33.9 g/dL (31.0-36.0); Mean Corpuscular Hemoglobin 31.6 pg (26.0-34.0); Monocytes # (Auto) 0.4 K/mcL (0.1-0.9); Monocytes % (Auto) 7.5 % (1.0-12.0); Platelet Count 541 K/mcL (140-440); Red Cell Distribution Width 13.4 % (11.5-14.5)
[2017-09-14 18:46] LABS: Appearance,Urine CLEAR; Bacteria,Urine 0 /hpf (0); Bilirubin,Urine NEG (NEG); Color,Urine STRAW; Glucose,Urine (UA) NEGATIVE (NEG); Leukocyte Esterase,Urine 25 /uL (NEG); Nitrate,Urine NEG (NEG); Protein,Urine NEG (NEG); Specific Gravity,Urine 1.003 (1.000-1.035); Urine Blood NEG mg/dL (<0.03); Urine RBC < 1 /hpf (0-1); Urine Squamous Epithelial Cell < 1 /hpf (0-4); Urine Transitional Epi Cells < 1 /hpf (0-2); Urine WBC 1 /hpf (0-4); Urobilinogen,Urine NEG (NEG)
[2017-09-14 18:52] LABS: ALT/SGPT 15 U/l (0-40); Albumin 3.4 gm/dL (3.2-5.2); Albumin/Globulin Ratio 1.1 (1.0-2.3); Alkaline Phosphatase 66 U/L (39-117); Blood Urea Nitrogen 13 mg/dl (8-23)
[2017-09-14] MEDS ORDERED: 0.9 % SODIUM CHLORIDE 1,000 ML IV ONE (19:54)
[2017-09-14] MEDS ORDERED: ACETAMINOPHEN 325 MG TABLET PO ONE (19:55)
--- NOTE | 2017-09-14 20:55 | Internal Med History&Physical ---
Medical - H&P: HPI Patient information: Note initiated : 09/14/17 at 8:52 pm Service Date, if different from initiated Date: [] Patient: Eugenia Barboza 82 y/o F admitted on for high blood pressure, headache. 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 Patient presents to the emergency department today because her blood pressures up to the 170s systolic at home, and she was experiencing headache. At presentation blood pressure is 159. She did receive some pain meds and her headache is improved. However during evaluation, basic metabolic panel revealed serum sodium 116. Patient denies any weakness, denies any changes in her medications. She does have hypertension, does not take HCTZ. She estimates she drinks about 2 water bottles a day (about 500 mL each). She's been told she should include more salt in her diet, on the other hand that a worsen her blood pressure. She has a history of chronic hyponatremia, labs going back 2013 show sodiums from 118 to low 130s. During the last hospitalization earlier this month, her serum sodium stabilized in the high 120s. Etiology is been evaluated in the past, unclear what is causing her hyponatremia. She has no apparent lung lesions, has had no recent pneumonia. Currently she has had no nausea or vomiting. She's had no diarrhea recently. Her appetite is been better and she is feeling improved after hospitalization in [place] and at this facility. During that time she was treated with antibiotics, which improved many of her GI symptoms which were thought to be due to intestinal bacterial overgrowth, particularly associated with duodenal diverticuli. Patient denies any fevers, chills, head congestion, cough, sputum production, chest pain or tightness, nausea or vomiting, diarrhea, abdominal pain, focal neurologic symptoms, dysuria. No history of CHF, no history of cirrhosis/ ascites. No history of thyroid disease. Patient's been hospitalized for treatment with fluids for her critical hyponatremia. Review of systems: Except as noted in history of present illness, the remainder of the 12 point review of systems is negative. 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 History of sinus problems History of hypomagnesemia Surgical history: Status post cholecystectomy Pertinent family history: Mther in her 90s and had a history of some GI problems. Father in his 90s but health was unknown. She has half siblings but their health is unknown. Social history: She is and lives with her . Her children live in [facility]. She does not use tobacco or drugs. She did drink alcohol most days prior to her hospitalization earlier this month, generally a glass of wine, but hasn't had a drink in several weeks. Medical - H&P: Meds Home Medications Medication Instructions Recorded Confirmed Type Metoprolol Succinate 25 mg PO DAILY 08/16/17 09/14/17 History Apixaban [Eliquis] 5 mg PO BID 09/14/17 09/14/17 History Lisinopril [Zestril] 20 mg PO DAILY 09/14/17 09/14/17 History Omeprazole [Prilosec] 1 tablet PO DAILY 09/14/17 09/14/17 History Spironolactone [Aldactone] 25 mg PO DAILY 09/14/17 09/14/17 History amLODIPine [Norvasc] 5 mg PO DAILY 09/14/17 09/14/17 History Allergies Allergy/AdvReac Type Severity Reaction Status Date / Time No Known Drug Allergies Allergy Verified 08/16/17 11:03 Medical - H&P: Exam - Constitutional Vitals: Temp Pulse Resp BP Pulse Ox 97.4 F 69 18 131/70 99 09/14/17 17:02 09/14/17 20:35 09/14/17 20:35 09/14/17 20:31 09/14/17 20:35 Exam: General: Alert, in no acute distress HEENT: Normocephalic. Pupils are equally round and reactive to light. Sclera are anicteric. No conjunctival injection. Oropharynx is with moist mucous membranes. Tongue is midline. Neck: Supple, no meningismus. No thyromegaly. Chest: Clear to auscultation bilaterally with no rales or wheezes. No accessory muscle use. Cardiovascular: Regular rate and rhythm without murmur gallop or rub. Carotid pulses are 2+ without bruit. There is no lower extremity edema. JVP is normal. Abdomen: Soft, nontender without guarding or rebound. Active bowel sounds. No hepatosplenomegaly. No fluid wave. Lymphatic: No cervical or supraclavicular lymphadenopathy. Skin: Warm, dry. No rash. Skin turgor is normal Musculoskeletal: No joint erythema or tenderness. Normal range of motion in the upper and lower extremities. Strength 5/5 in upper and lower extremities. Digits without cyanosis or clubbing. Neuro: Alert, oriented X3. Cranial nerves II through XII grossly intact. Sensation intact to light touch. DTR 2+ in the upper and lower extremity. Psychiatric: Affect and orientation are normal. Decreased insight into recent medical condition. Medical - H&P: Reslt - Labs CBC & Chem 7: 09/14/17 17:29 09/14/17 17:29 Labs: Short CBC 09/14/17 Range/Units 17:29 WBC 5.6 (4.5-11.0) K/mcL Hgb 11.1 L (12.0-15.0) g/dL Hct 32.7 L (36.0-48.0) % Plt Count 541 H (140-440) K/mcL BMP 09/14/17 17:29 Sodium 116 L* Potassium 4.6 Chloride 82 L Carbon Dioxide 21 L BUN 13 Creatinine 0.7 Glucose 106 H Calcium 8.6 Cardiac Enzymes 09/14/17 Range/Units 17:29 Troponin T < 0.01 (0-0.03) ng/ml Liver Function 09/14/17 Range/Units 17:29 Total Bilirubin 0.4 (0.0-1.0) mg/dL AST 26 (0-37) U/l ALT 15 (0-40) U/l Alkaline Phosphatase 66 (39-117) U/L Albumin 3.4 (3.2-5.2) gm/dL Urine 09/14/17 Range/Units 18:08 Urine Color Straw Urine Appearance Clear Urine pH 8.0 (5.0-9.0) Ur Specific [place] 1.003 (1.000-1.035) Urine Protein Neg (NEG) mg/dL Urine Glucose (UA) Negative (NEG) mg/dL - EKG Data -: EKG Reviewed by Myself (sinus rhythm and rate 74 with normal intervals and no ST changes) Medical - H&P: A/P (1) Hyponatremia Current visit: No Status: Acute (2) Hypertension Current visit: Yes Status: Acute (3) Superior mesenteric vein thrombosis Current visit: Yes Status: Acute - Narrative A/P Narrative: 82-year-old female presenting with headache and elevated blood pressure, found to have hyponatremia. Hyponatremia. Has history of chronic hyponatremia, undetermined etiology. Last presentation, spelled it could've been due to dehydration secondary to her ongoing stearrhea and malabsorption as well as diuretic use in the form spironolactone. It is possible that this currently is side effect of spironolactone. She is reducing dilute urine when checked, indicating possible concentrating defect. Unclear if she had recently taken spironolactone or not, though I suspect not, given the timing of her presentation to the hospital. No history of congestive heart failure no history of cirrhosis, no evidence of volume overload on exam. Suspect this is a hypovolemic hyponatremia. She does have a baseline sodium in the high 120s, though is now critically low and will require adjustment. Plan: Observation hospitalization, on telemetry given electrolyte abnormalities Hydration with normal saline Every 4 hour basic panels Avoid rapidly correcting sodium Send urine sodium and creatinine to help diagnose etiology Hypertension. Unclear if this is related to her headache of presentation. Plan: Continue with her home regimen, but will hold spironolactone Superior mesenteric vein thrombosis. Discovered on CT scan of the abdomen during her hospitalization early August. Plan: Continue anticoagulation. CODE STATUS discussed with the patient, she is full code.
[2017-09-14] MEDS ORDERED: ONDANSETRON 4 MG/2 ML VIAL IV PRN (21:41)
[2017-09-14] MEDS ORDERED: 0.9 % SODIUM CHLORIDE 1,000 ML IV SCH (21:41)
[2017-09-14] MEDS ORDERED: ACETAMINOPHEN 325 MG TABLET PO PRN (21:41)
[2017-09-14] MEDS ORDERED: HYDROcodone/APAP 5/325MG TABLET PO PRN (21:41)
[2017-09-14 22:28] LABS: Osmolality,Urine 128 mOsm/kg (80-1000)
[2017-09-15 00:08] LABS: Blood Urea Nitrogen 11 mg/dl (8-23)
[2017-09-15] MEDS ORDERED: 0.9 % SODIUM CHLORIDE 1,000 ML IV SCH (00:14)
[2017-09-15 04:24] LABS: Blood Urea Nitrogen 11 mg/dl (8-23)
[2017-09-15 07:06] LABS: Blood Urea Nitrogen 11 mg/dl (8-23)
[2017-09-15] MEDS ORDERED: amLODIPine 5 MG TABLET PO SCH (09:00)
[2017-09-15] MEDS ORDERED: LISINOPRIL 20 MG TABLET PO SCH (09:00)
[2017-09-15] MEDS ORDERED: METOPROLOL SUCCINATE 25 MG TAB.XL.24H PO SCH (09:00)
[2017-09-15] MEDS ORDERED: APIXABAN 5 MG TABLET PO SCH (09:00)
[2017-09-15] MEDS ORDERED: OMEPRAZOLE 20 MG CAPSULE PO SCH (09:00)
[2017-09-15 10:49] LABS: Blood Urea Nitrogen 10 mg/dl (8-23)
--- NOTE | 2017-09-15 11:18 | Discharge Summary ---
Medical - DS: Prov Patient information: Note initiated : 09/15/17 at 11:14 am Service Date, if different from initiated Date: [] Patient: Eugenia Barboza 82 y/o F admitted on 09/14/17 for high blood pressure, headache. Date of admission: 09/14/17 21:30 Discharge date: 09/15/17 Primary care physician: Emerson Connors Admitting clinician: Iman Strickland Consults: 09/14/17 19:11 Consult to Physician [CONS] Stat Comment: Consulting Provider: Iman Strickland Reason For Exam: Physician to Consult Discharging clinician: Iman Strickland Medical - DS: Meds - Discharge Medications Active and Home Medications: Home Medications Metoprolol Succinate 25 mg PO DAILY 08/16/17 [History Confirmed 09/14/17 Last Taken 09/14/17] Apixaban [Eliquis] 5 mg PO BID 09/14/17 [History Confirmed 09/14/17 Last Taken Unknown] Lisinopril [Zestril] 20 mg PO DAILY 09/14/17 [History Confirmed 09/14/17 Last Taken Unknown] Omeprazole [Prilosec] 1 tablet PO DAILY 09/14/17 [History Confirmed 09/14/17 Last Taken 09/14/17] Spironolactone [Aldactone] 25 mg PO DAILY 09/14/17 [History Confirmed 09/14/17 Last Taken 09/14/17] amLODIPine [Norvasc] 5 mg PO DAILY 09/14/17 [History Confirmed 09/14/17 Last Taken Unknown] Medical - DS: Hosp Hospital course: History of present illness: Sep 14 Patient is an 82 old female with a history of fairly severe hypertension, chronic hyponatremia, 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 Patient presents to the emergency department today because her blood pressures up to the 170s systolic at home, and she was experiencing headache. At presentation blood pressure is 159. She did receive some pain meds and her headache is improved. However during evaluation, basic metabolic panel revealed serum sodium 116. Patient denies any weakness, denies any changes in her medications. She does have hypertension, does not take HCTZ. She estimates she drinks about 2 water bottles a day (about 500 mL each). She's been told she should include more salt in her diet, on the other hand that a worsen her blood pressure. She has a history of chronic hyponatremia, labs going back 2013 show sodiums from 118 to low 130s. During the last hospitalization earlier this month, her serum sodium stabilized in the high 120s. Etiology is been evaluated in the past, unclear what is causing her hyponatremia. She has no apparent lung lesions, has had no recent pneumonia. Currently she has had no nausea or vomiting. She's had no diarrhea recently. Her appetite is been better and she is feeling improved after hospitalization in [place] and at this facility. During that time she was treated with antibiotics, which improved many of her GI symptoms which were thought to be due to intestinal bacterial overgrowth, particularly associated with duodenal diverticuli. Patient denies any fevers, chills, head congestion, cough, sputum production, chest pain or tightness, nausea or vomiting, diarrhea, abdominal pain, focal neurologic symptoms, dysuria. No history of CHF, no history of cirrhosis/ ascites. No history of thyroid disease. Patient's been hospitalized for treatment with fluids for her critical hyponatremia. Sep 15 The patient did well overnight. Her serum sodium corrected with normal saline infusion. It has plateaued at [id number], which appears to be her historic baseline. The patient provided further history that she had had labs drawn this past Friday, 2 days prior to admission, prior to an office visit later this month. She had not been called with any seriously abnormal lab values. In the interim, she had become thirsty and had decreased urine output and had been drinking free water in the day prior to admission. Urine sodium was 37, suggesting abnormal natriuresis in the face of hyponatremia. Though this was obtained after initial fluids given in the emergency department. Urine OSM was in the 100 range, however indicating an appropriately dilute urine for hyponatremia I suspect a hypovolemic hyponatremia, quite possibly secondary to aldosterone antagonist and diuretic effect of spironolactone. I have asked her to stop her spironolactone. If she does become dehydrated, to use Pedialyte or sport drinks rather than free water to help rehydrate. Discharge diagnosis: Hyponatremia, acute on chronic Medical - DS: Exam - Constitutional Vitals: Vital Signs Temp Pulse Resp BP BP Pulse Ox 09/15/17 08:10 98.9 F 09/15/17 08:08 72 99 09/15/17 08:01 70 94/62 100 09/15/17 04:18 16 92/62 99 09/15/17 04:01 98.0 F 16 88/54 100 09/15/17 00:07 97.3 F 16 96/55 100 09/14/17 22:04 97.4 F 65 13 102/61 97 09/14/17 21:41 98.3 F 16 117/65 100 09/14/17 21:30 98.3 F 16 117/65 100 09/14/17 21:17 65 13 97 09/14/17 21:16 65 14 102/61 99 09/14/17 21:01 67 17 122/65 100 09/14/17 20:56 69 19 135/71 100 09/14/17 20:46 69 17 118/63 97 09/14/17 20:35 69 18 99 09/14/17 20:31 71 18 131/70 99 09/14/17 20:18 75 16 100 09/14/17 20:16 75 17 142/76 100 09/14/17 20:01 71 17 126/67 99 09/14/17 19:47 22 123/82 09/14/17 19:46 19 09/14/17 19:31 17 150/74 09/14/17 19:16 18 142/71 09/14/17 19:01 74 19 152/74 100 09/14/17 18:58 75 16 152/79 99 09/14/17 18:47 78 18 133/69 100 09/14/17 18:32 77 15 134/71 100 09/14/17 18:16 76 19 140/74 99 09/14/17 17:46 74 18 138/72 100 09/14/17 17:34 73 17 143/74 100 09/14/17 17:02 97.4 F 78 16 151/77 100 Intake and Output 09/14/17 09/15/17 09/15/17 21:59 05:59 13:59 Intake Total 1715 / 1715 480 / 480 Output Total 350 / 350 1600 / 1600 1500 / 1500 Balance -350 / -350 115 / 115 -1020 / -1020 Intake: IV 1155 / 1155 Oral 560 / 560 480 / 480 Output: Urine Catheter Amount 150 / 150 Void Amount 350 / 350 1600 / 1600 1350 / 1350 Other: Meal [place], chips Breakfast Percent of Meal Consumed 100% 100% Feeding Ability Independent Assist with Tray Set Up # Voids 1 Weight 11 lb 8 oz 112 lb Patient Weight 09/16/17 05:59 Weight 112 lb Additional comments: General: In no acute distress Chest: Clear Cardiovascular: Regular, no edema Abdomen: Soft, nontender Neuro: Alert, oriented, thought processes linear and appropriate Medical - DS: Data Labs on day of discharge: Laboratory Results - last 24 hr 09/14/17 09/14/17 09/14/17 17:29 17:29 17:29 WBC 5.6 RBC 3.50 L Hgb 11.1 L Hct 32.7 L MCV 93.3 MCH 31.6 MCHC 33.9 RDW 13.4 Plt Count 541 H MPV 7.0 L Gran % 73.9 Lymph % (Auto) 18.0 [place] % (Auto) 7.5 Eos % (Auto) 0 Baso % (Auto) 0.6 Gran # 4.1 Lymph # (Auto) 1.0 L [place] # (Auto) 0.4 Eos # (Auto) 0 Baso # (Auto) 0 Sodium 116 L* Potassium 4.6 Chloride 82 L Carbon Dioxide 21 L Anion Gap 13.0 BUN 13 Creatinine 0.7 GFR Calculation 80 Glucose 106 H Calcium 8.6 Total Bilirubin 0.4 AST 26 ALT 15 Alkaline Phosphatase 66 Troponin T < 0.01 Total Protein 6.4 Albumin 3.4 Globulin 3.0 Albumin/Globulin Ratio 1.1 TSH Urine Color Urine Appearance Urine pH Ur Specific Zirconia Urine Protein Urine Glucose (UA) Urine Ketones Urine Occult Blood Urine Nitrate Urine Bilirubin Urine Urobilinogen Ur Leukocyte Esterase Urine RBC Urine WBC Ur Squamous Epith Cells Ur Transition Epith Cell Urine Bacteria Ur Culture Indicated? Urine Osmolality Ur Random Sodium 09/14/17 09/14/17 09/14/17 18:08 18:08 21:30 WBC RBC Hgb Hct MCV MCH MCHC RDW Plt Count MPV Gran % Lymph % (Auto) [place] % (Auto) Eos % (Auto) Baso % (Auto) Gran # Lymph # (Auto) [place] # (Auto) Eos # (Auto) Baso # (Auto) Sodium 121 L Potassium 4.3 Chloride 87 L Carbon Dioxide 21 L Anion Gap 13.0 BUN 11 Creatinine 0.6 GFR Calculation 84 Glucose 103 Calcium 8.7 Total Bilirubin AST ALT Alkaline Phosphatase Troponin T Total Protein Albumin Globulin Albumin/Globulin Ratio TSH 2.33 Urine Color Straw Urine Appearance Clear Urine pH 8.0 Ur Specific Zirconia 1.003 Urine Protein Neg Urine Glucose (UA) Negative Urine Ketones Neg Urine Occult Blood Neg Urine Nitrate Neg Urine Bilirubin Neg Urine Urobilinogen Neg Ur Leukocyte Esterase 25 A Urine RBC < 1 Urine WBC 1 Ur Squamous Epith Cells < 1 Ur Transition Epith Cell < 1 Urine Bacteria 0 Ur Culture Indicated? No Urine Osmolality 128 Ur Random Sodium 37 09/15/17 09/15/17 09/15/17 02:00 06:00 10:01 WBC RBC Hgb Hct MCV MCH MCHC RDW Plt Count MPV Gran % Lymph % (Auto) [place] % (Auto) Eos % (Auto) Baso % (Auto) Gran # Lymph # (Auto) [place] # (Auto) Eos # (Auto) Baso # (Auto) Sodium 129 L 130 L 129 L Potassium 4.0 4.4 4.3 Chloride 96 98 94 L Carbon Dioxide 22 22 20 L Anion Gap 11.0 10.0 15.0 BUN 11 11 10 Creatinine 0.5 L 0.5 L 0.6 GFR Calculation 90 90 84 Glucose 112 H 99 160 H Calcium 8.4 L 8.5 L 9.0 Total Bilirubin AST ALT Alkaline Phosphatase Troponin T Total Protein Albumin Globulin Albumin/Globulin Ratio TSH Urine Color Urine Appearance Urine pH Ur Specific Zirconia Urine Protein Urine Glucose (UA) Urine Ketones Urine Occult Blood Urine Nitrate Urine Bilirubin Urine Urobilinogen Ur Leukocyte Esterase Urine RBC Urine WBC Ur Squamous Epith Cells Ur Transition Epith Cell Urine Bacteria Ur Culture Indicated? Urine Osmolality Ur Random Sodium Medical - DS: A/P - Patient/Caregiver Discharge Instructions Activity: increase activity as tolerated Diet: Regular Diet Additional Instructions: Use Pedialyte or sports drinks if you feel you are becoming dehydrated. Stopped taking her spironolactone. Please call for follow-up appointment with Dr. Talbot in the next 7-10 days. - Problem Maintenance (1) Hyponatremia Status: Chronic (2) Hypertension Status: Chronic (3) Superior mesenteric vein thrombosis Status: Chronic - Follow up Plan Follow up with: Emerson Connors MD [Primary Care Provider] - (7-10 days) Disposition: Home, Self-Care Prognosis: Good Rehab Potential: Good Overall status at discharge: patient is back to baseline Medical - DS: Qual - VTE Deep Vein Thrombosis/Pulmonary Embolism Present on Admission: No
== END 2017-09-15 12:15 | disposition home or self-care (01) ==
LOC: ED 17:02 → INTOOBSV 21:30 → ICU 21:30
PROVIDERS: ADMIT Internal Medicine; ATTEND Internal Medicine

== ENCOUNTER 2021-05-22 10:22 | Inpatient (IN) ==
[2021-05-22] MEDS ORDERED: 0.9 % SODIUM CHLORIDE 1,000 ML IV ONE ×2 (10:49→13:59)
--- NOTE | 2021-05-22 11:05 | Emergency Department Note ---
HPI General Chief complaint: Weakness Stated complaint: weakness, diarrhea Time Seen by Provider: 05/22/21 10:48 Source: patient Mode of arrival: wheelchair Limitations: no limitations History of Present Illness HPI Narrative: Patient is an 85-year-old lady who arrives to the emergency department by private vehicle accompanied by her complaining of diarrhea. History is provided by the patient. History is somewhat limited as the patient is very hard of hearing. She says she has been having diarrhea for the past 4 days. She has been having about 3 bowel movements a day. She denies any blood in her stool. She has been feeling fatigued and rundown. She says this has happened many times in the past that she has an undiagnosed stomach condition that causes her to have chronic diarrhea. She was evaluated at her primary care physician's office and sent to the emergency department for further evaluation. Nothing seems to make her symptoms any better or worse. Related Data Home Medications Medication Instructions Recorded Confirmed metoprolol succinate 25 mg PO DAILY 08/16/17 05/22/21 Eliquis 5 mg PO BID 09/14/17 05/22/21 amlodipine 5 mg PO DAILY 09/14/17 05/22/21 lisinopril [Zestril] 20 mg PO DAILY 09/14/17 05/22/21 omeprazole 1 tab PO DAILY 09/14/17 05/22/21 Milltrium Senior 1 ea PO DAILY 10/14/17 05/22/21 spironolactone 25 mg PO ONCE 10/14/17 05/22/21 Previous Rx's Medication Instructions Recorded loperamide [Imodium A-D] 2 mg PO QID PRN #20 cap 05/23/21 Allergies Allergy/AdvReac Type Severity Reaction Status Date / Time No Known Drug Allergies Allergy Verified 05/22/21 10:24 Review of Systems ROS ROS Narrative: Narrative: All systems ED: reviewed and negative except as stated. Constitutional: Denies fever and chills Cardiovascular: Denies chest pain Respiratory: Denies shortness of breath and cough PFSH Narrative Patient History Narrative: Narrative: Medical/Surgical/Family History All Active Problems (Updated 06/06/21 @ 07:03 by Guanaco Posey DO) Acute dehydration (Acute) Diarrhea (Acute) Chronic anticoagulation (Acute) Anemia, normocytic normochromic (Acute) CKD (chronic kidney disease) stage 3, GFR 30-59 ml/min (Acute) Stage 2 acute kidney injury (Acute) Hypertension (Chronic) Syncope and collapse (Acute) Alcohol intoxication (Acute) Superior mesenteric vein thrombosis (Chronic) Hyponatremia (Chronic) Hypokalemia (Acute) UTI (urinary tract infection) (Acute) Hypotension (Acute) Dehydration (Acute) Nausea and vomiting in adult (Acute) Pyuria (Acute) Hypotension (Acute) Gastritis and duodenitis (Chronic) Small intestinal bacterial overgrowth (Acute) Social History Smoking Status: Never smoker Alcohol Intake Frequency: does not drink Substance Use: does not use Exam Narrative Narrative: I reviewed the vital signs. Gen -patient is awake and alert and in no acute distress. The patient is well groomed. HEENT -head is atraumatic. There is no conjunctival pallor or scleral icterus. Mucous membranes are dry CV -S1-S2 regular rate and rhythm. Peripheral pulses are palpable. There is no JVD. Resp -breathing is nonlabored. Lungs are clear to auscultation bilaterally. There is no cyanosis. GI - Abdomen is soft and nontender to palpation. There is no guarding or rebound tenderness. Derm -skin is warm and dry. There is no visible rash. MSK -present extremities are atraumatic. Psych -patient has appropriate affect. The patient does not appear internally stimulated. Neuro -patient answers questions appropriately with fluent speech. Patient moves all present extremities equally. General Limitations: no limitations Course Vital Signs Vital signs: Vital Signs Pulse Rate 73 05/22/21 10:23 Respiratory Rate 20 05/22/21 10:23 Blood Pressure 96/63 05/22/21 10:23 Pulse Oximetry (%) 99 05/22/21 10:23 Temperature 96.3 F L 05/23/21 13:13 Pulse Rate 86 05/23/21 13:13 Respiratory Rate 18 05/23/21 12:00 Blood Pressure 112/74 05/23/21 13:13 Pulse Oximetry (%) 100 05/23/21 13:13 [facility] Narrative Medical decision making narrative: Patient presents with diarrhea. Labs remarkable for anemia and creatinine slightly elevated above her baseline. She had minimal improvement in her symptoms with IV fluids administered in the emergency department. I discussed the test results with the patient. I recommended she be admitted for further hydration and monitoring of her renal function and she was agreeable with this. I discussed the patient's history examination and diagnostic findings with Dr. Currie, who agrees with the plan of care and accepts admission. Lab Data Result diagrams: 05/23/21 05:11 05/23/21 05:10 Labs: Lab Results 05/22/21 05/22/21 Range/Units 11:26 11:48 WBC 8.4 (4.5-11.0) K/mcL RBC 3.28 L (3.59-5.38) M/mcL Hgb 10.4 L (11.2-15.7) g/dL Hct 29.6 L (34.1-44.9) % POC Hct 31 L (36-48) % MCV 90.2 (80.0-100.0) fL MCH 31.7 (26.0-34.0) pg MCHC 35.1 (31.0-36.0) g/dL RDW 13.1 (11.5-14.5) % Plt Count 360 (140-440) K/mcL MPV 9.1 (7.4-10.4) fL Neut % (Auto) 85.4 H (38.0-78.0) % Lymph % (Auto) 9.9 L (15.5-49.0) % [place] % (Auto) 4.5 (1.0-12.0) % Eos % (Auto) 0 (0.0-7.0) % Baso % (Auto) 0.2 (0.0-2.0) % Lymph # (Auto) 0.83 L (1.50-4.80) K/mcL [place] # (Auto) 0.38 (0.10-0.90) K/mcL Eos # (Auto) 0 (0.00-0.70) K/mcL Baso # (Auto) 0.02 (0.00-0.30) K/mcL Absolute Neutrophils 7.17 (1.80-8.00) K/mcL POC Sodium 128 L (133-145) mEq/L POC Potassium 4.5 (3.3-5.1) mEql/L POC Chloride 99 (96-108) mEq/L POC Total CO2 17 L (22-30) mmol/L POC BUN 108 H* (6-20) mg/dL POC Creatinine 2.0 H (0.6-1.2) mg/dL POC Glucose 164 H (70-105) mg/dL POC WB Ioniz Calcium 1.28 (1.16-1.32) mmEq/L ED POC Tests ED POC Tests: OFELIA - SARS Antigen Negative Discharge Plan Patient/Caregiver Discharge Instructions Pt seen by STOCK CHASER/PA only: No Clinical Impression: Acute dehydration Activity: increase activity as tolerated Patient Disposition: Xfer As Inpt ([facility]) Condition: Fair Discharge Date/Time: 05/22/21 14:18
[2021-05-22 11:43] LABS: POC Blood Urea Nitrogen 108 mg/dL (6-20); POC CO2 17 mmol/L (22-30); POC Calcium, Ionized 1.28 mmEq/L (1.16-1.32); POC Chloride 99 mEq/L (96-108); POC Glucose, Random 164 mg/dL (70-105); POC Hematocrit 31 % (36-48); POC Potassium 4.5 mEql/L (3.3-5.1); POC Sodium 128 mEq/L (133-145)
[2021-05-22 12:36] LABS: Basophils # (Auto) 0.02 K/mcL (0.00-0.30); Basophils % (Auto) 0.2 % (0.0-2.0); Eosinophils # (Auto) 0 K/mcL (0.00-0.70); Eosinophils % (Auto) 0 % (0.0-7.0); Hematocrit 29.6 % (34.1-44.9); Hemoglobin 10.4 g/dL (11.2-15.7); Lymphocytes # (Auto) 0.83 K/mcL (1.50-4.80); Lymphocytes % (Auto) 9.9 % (15.5-49.0); Mean Cell Volume 90.2 fL (80.0-100.0); Mean Corpuscular HGB Conc 35.1 g/dL (31.0-36.0); Mean Platelet Volume 9.1 fL (7.4-10.4); Monocytes # (Auto) 0.38 K/mcL (0.10-0.90); Monocytes % (Auto) 4.5 % (1.0-12.0); Neutrophils % (Auto) 85.4 % (38.0-78.0); Platelet Count 360 K/mcL (140-440); RBC 3.28 M/mcL (3.59-5.38); Red Cell Distribution Width 13.1 % (11.5-14.5); WBC 8.4 K/mcL (4.5-11.0)
--- NOTE | 2021-05-22 13:09 | Internal Med History&Physical ---
HPI History of Present Illness Patient information: Note initiated : 05/22/21 at 12:59 pm Service Date, if different from initiated Date: [] Patient: Eugenia Barboza 85 y/o F admitted on for weakness, diarrhea. Chief Complaint: [diarrhea, dehydration] History of present illness: Ms. Barboza is a 85 year old F history of hypertension, stage III chronic kidney disease, and chronic cyclic diarrhea, presenting with 4-day history of worsening diarrhea. According to patient, she has a long history of diarrhea due to her defined it stomach conditions. Over the last 4 days, she has worsening diarrhea with up to 3 bowel movement per day. Because of that, she decided to come to her PCP for further evaluations. She was being sent by her PCP to our ED for further evaluations. Vital signs significant for soft blood pressure with systolics in the 90s and diastolic in the 50s. Rest of the vital signs within normal limits. Labs significant for lack of leukocytosis with WBC 8.4. BUN and creatinine 108 and 2.0, respectively. Constitutional Constitutional: Absent chills, excessive sweating, fatigue, fever(s) and weakness EENT Eyes: Absent blurry vision, change in vision, loss of vision and other visual disturbances Ears: Absent decreased hearing and tinnitus Nose, mouth and throat: Absent abnormal hearing, dry mouth, headache(s), nasal congestion and sore throat Cardiovascular Cardiovascular: Absent chest pain, chest pain at rest, edema, irregular heart rhythm and palpatations Respiratory Respiratory: Absent cough, dyspnea and wheezing Gastrointestinal Gastrointestinal: Present abdominal pain and diarrhea; Absent constipation, nausea and vomiting Musculoskeletal Musculoskeletal: Absent back pain, deformity, limited range of motion, muscle cramps, muscle weakness and numbness Integumentary Integumentary: Absent lesions, rash and wounds Neurological Neurological: Absent focal weakness, headache(s) and numbness Psychiatric Psychiatric: Absent anxiety, depression and hallucinations PFSH PFSH All Active Problems (Updated 05/22/21 @ 13:04 by Josemanuel Currie MD) Chronic anticoagulation (Acute) Anemia, normocytic normochromic (Acute) CKD (chronic kidney disease) stage 3, GFR 30-59 ml/min (Acute) Stage 2 acute kidney injury (Acute) Hypertension (Chronic) Syncope and collapse (Acute) Alcohol intoxication (Acute) Superior mesenteric vein thrombosis (Chronic) Hyponatremia (Chronic) Hypokalemia (Acute) UTI (urinary tract infection) (Acute) Hypotension (Acute) Dehydration (Acute) Nausea and vomiting in adult (Acute) Pyuria (Acute) Hypotension (Acute) Gastritis and duodenitis (Chronic) Small intestinal bacterial overgrowth (Acute) Social History alcohol intake frequency: does not drink substance use type: does not use MEDS/ALLERGIES Home Medications and Allergies Home Medications Medication Instructions Recorded Confirmed Type metoprolol succinate 25 mg PO DAILY 08/16/17 07/26/20 History Eliquis 5 mg PO BID 09/14/17 07/26/20 History amlodipine 5 mg PO DAILY 09/14/17 07/26/20 History lisinopril [Zestril] 20 mg PO DAILY 09/14/17 07/26/20 History omeprazole 1 tab PO DAILY 09/14/17 07/26/20 History [id number] 1 ea PO DAILY 10/14/17 07/26/20 History [Milltrium Senior Multivit Tab] spironolactone 25 mg PO ONCE 10/14/17 07/26/20 History Allergies Allergy/AdvReac Type Severity Reaction Status Date / Time No Known Drug Allergies Allergy Verified 05/22/21 10:24 EXAM Constitutional Vitals: Pulse Resp BP Pulse Ox 67 20 95/58 96 05/22/21 12:57 05/22/21 10:23 05/22/21 12:57 05/22/21 12:57 General appearance: cooperative and no acute distress Head Head exam: Present atraumatic and normocephalic Eye Eye exam: Present EOMI and PERRL ENT ENT exam: Present mucous membranes moist and normal exam Additional comments: bilateral hard of hearing Neck Neck exam: Present normal inspection; Absent lymphadenopathy, tenderness and thyromegaly Respiratory Respiratory exam: Absent accessory muscle use, respiratory distress and wheezes Cardiovascular Cardiovascular exam: Present normal rate and rhythm; Absent JVD GI/Abdominal GI/Abdominal exam: Present normal bowel sounds and soft; Absent organomegaly and tenderness Extremities Exam Extremities exam: Present full ROM, normal capillary refill and normal inspection; Absent tenderness Neurological Exam Neurological exam: Present alert, CN II-XII intact and oriented X3; Absent motor sensory deficit Psychiatric Psychiatric exam: Present normal affect and normal mood; Absent anxious and depressed Skin Skin exam: Present dry and intact DATA Data Completed and Pending Labs: Labs from last 24 hours 05/22/21 05/22/21 11:48 11:26 WBC 8.4 RBC 3.28 L Hgb 10.4 L Hct 29.6 L POC Hct 31 L MCV 90.2 MCH 31.7 MCHC 35.1 RDW 13.1 Plt Count 360 MPV 9.1 Neut % (Auto) 85.4 H Lymph % (Auto) 9.9 L [place] % (Auto) 4.5 Eos % (Auto) 0 Baso % (Auto) 0.2 Lymph # (Auto) 0.83 L [place] # (Auto) 0.38 Eos # (Auto) 0 Baso # (Auto) 0.02 Absolute Neutrophils 7.17 POC Sodium 128 L POC Potassium 4.5 POC Chloride 99 POC Total CO2 17 L POC BUN 108 H* POC Creatinine 2.0 H POC Glucose 164 H POC WB Ioniz Calcium 1.28 A/P Assessment and plan (1) Hypertension: Status: Chronic (2) Dehydration: Status: Acute (3) Stage 2 acute kidney injury: Status: Acute (4) CKD (chronic kidney disease) stage 3, GFR 30-59 ml/min: Status: Acute (5) Anemia, normocytic normochromic: Status: Acute (6) Chronic anticoagulation: Status: Acute (7) Hyponatremia: Status: Chronic Narrative A/P Narrative: Assessment and Plans: 1. Diarrhea, acute on chronic: C diff Toxin PCR to rule out C diff colitis If the above is negative, will order Imodium PRN loose stool 2. Dehydration, and Stage 2 MELQUIADES on top of CKDIII: 2/2 diarrhea, see #1 Hold diuretics s/p 2L fluid bolus given in the ED, to be followed by NS@100cc/hr Avoid nephrotoxic agents such as Lisinopril for now Daily BMP to trend kidney functions 3. Hyponatremia: s/p 2L fluid bolus given in the ED, to be followed by NS@100cc/hr Hold diuretics BMP in the morning to trend serum sodium level 4. Anemia, normocytic normochromic: cbc w/ auto diff in the morning to trend H/H; transfuse pRBC if hemoglobin <7.0, active bleeding, or symptomatic 5. Essential HTN: Currently soft BP, and dehydration: Hold antihypertensives and diuretics for the time being; IV fluid infusion instead GI ppx: not currently indicated DVT ppx: Eliquis Code status: Full Prognosis: stable Disposition: inpatient med surg telemetry Time Spent With Patient Time: Total time spent is greater than 50% in coordination of care (as documented) at patient's floor/unit and/or counseling patient: Total time spent with greater than 50% in coordination of care (as documented) at patient's floor/unit and/or counseling patient:: 25 - 35 minutes
[2021-05-22] MEDS ORDERED: ACETAMINOPHEN 325 MG TABLET PO PRN (14:17)
[2021-05-22] MEDS ORDERED: ONDANSETRON 4 MG/2 ML VIAL IV PRN (14:17)
[2021-05-22] MEDS: 0.9 % SODIUM CHLORIDE 1,000 ML IV SCH (14:55)
[2021-05-22] MEDS: 0.9 % SODIUM CHLORIDE 10 ML SYRINGE IV SCH ×2 (14:55→22:03)
[2021-05-22] MEDS ORDERED: SENNOSIDES 1 TABLET PO SCH (21:00)
[2021-05-22] MEDS ORDERED: APIXABAN 5 MG TABLET PO SCH (21:00)
[2021-05-22] MEDS: APIXABAN 5 MG TABLET PO SCH (21:01)
[2021-05-22] MEDS: DOCUSATE SODIUM 100 MG CAPSULE PO SCH (21:02)
[2021-05-23] MEDS: 0.9 % SODIUM CHLORIDE 1,000 ML IV SCH ×2 (00:02→11:32)
[2021-05-23] MEDS: 0.9 % SODIUM CHLORIDE 10 ML SYRINGE IV SCH ×2 (05:16→12:35)
[2021-05-23 07:09] LABS: Basophils # (Auto) 0.01 K/mcL (0.00-0.30); Basophils % (Auto) 0.2 % (0.0-2.0); Eosinophils # (Auto) 0.05 K/mcL (0.00-0.70); Eosinophils % (Auto) 0.8 % (0.0-7.0); Hematocrit 29.9 % (34.1-44.9); Hemoglobin 9.9 g/dL (11.2-15.7); Lymphocytes # (Auto) 1.05 K/mcL (1.50-4.80); Mean Cell Volume 94.6 fL (80.0-100.0); Mean Corpuscular HGB Conc 33.1 g/dL (31.0-36.0); Mean Platelet Volume 8.9 fL (7.4-10.4); Monocytes # (Auto) 0.36 K/mcL (0.10-0.90); Monocytes % (Auto) 5.8 % (1.0-12.0); Neutrophils % (Auto) 76.2 % (38.0-78.0); Platelet Count 346 K/mcL (140-440); RBC 3.16 M/mcL (3.59-5.38); Red Cell Distribution Width 13.6 % (11.5-14.5); WBC 6.2 K/mcL (4.5-11.0)
[2021-05-23] MEDS ORDERED: OMEPRAZOLE 20 MG CAPSULE PO SCH ×2 (07:30)
[2021-05-23 07:45] LABS: Blood Urea Nitrogen 55 mg/dL (8-23); Calcium 8.6 mg/dL (8.6-10.4); Carbon Dioxide 14 mmol/L (22-30); Chloride 108 mmol/L (96-108); Glomerular Filtration Rate 58; Glucose 88 mg/dL (70-105)
[2021-05-23] MEDS: DOCUSATE SODIUM 100 MG CAPSULE PO SCH (08:37)
[2021-05-23] MEDS: APIXABAN 5 MG TABLET PO SCH (08:38)
[2021-05-23] MEDS ORDERED: MULTIVIT,THER IRON,CA,FA & MIN 1 TABLET PO SCH ×2 (09:00)
--- NOTE | 2021-05-23 11:03 | Discharge Summary ---
Discharge Provider Provider Patient information: Note initiated : 05/23/21 at 11:00 am Service Date, if different from initiated Date: [] Patient: Eugenia Barboza 85 y/o F admitted on 05/22/21 for weakness, diarrhea. Chief Complaint: [diarrhea, dehydration, acute kidney injury.] Date of admission: 05/22/21 14:15 Discharge date: 05/23/21 Consults: 05/22/21 11:48 Consult to Physician [CONS] Stat Comment: Consulting Provider: Josemanuel Currie Reason For Exam: Physician to Consult Discharge Meds Discharge Medications Home Medications metoprolol succinate 25 mg PO DAILY 08/16/17 [History Confirmed 05/22/21 Last Taken 10/14/17] Eliquis 5 mg PO BID 09/14/17 [History Confirmed 05/22/21 Last Taken 10/14/17] amlodipine 5 mg PO DAILY 09/14/17 [History Confirmed 05/22/21 Last Taken 10/14/17] lisinopril [Zestril] 20 mg PO DAILY 09/14/17 [History Confirmed 05/22/21 Last Taken 10/14/17] omeprazole 1 tab PO DAILY 09/14/17 [History Confirmed 05/22/21 Last Taken 10/14/17] Milltrium Senior 1 ea PO DAILY 10/14/17 [History Confirmed 05/22/21 Last Taken Unknown] spironolactone 25 mg PO ONCE 10/14/17 [History Confirmed 05/22/21 Last Taken 10/14/17] loperamide [Imodium A-D] 2 mg PO QID PRN #20 cap 05/23/21 [Rx Last Taken Unknown] COURSE Hospital Course Hospital course: Patient was admitted on May 22, 2021 for acute on chronic diarrhea, dehydration, and acute kidney injury. C. difficile toxin PCR was tested and it was negative. Imodium as needed was started and patient's symptoms are of diarrhea has greatly improved since. IV fluid was also started and patient's BUN creatinine ratio, as well as serum creatinine has both improved by the next day. Patient felt much better the next day and reached clinical stability. As such, the decision was made to discharge home with prescriptions of Imodium given to her. 2 weeks PCP follow-up appointment made for the patient. All questions were answered prior to patient being physically discharged. Patient recovered much faster than expected. Discharge diagnosis: diarrhea, MELQUIADES, dehydration Time Spent with Patient Time attestation: Total time spent providing and/or coordinating discharge services: Patient was admitted on May 22, 2021 for acute on chronic diarrhea, dehydration, and acute kidney injury. C. difficile toxin PCR was tested and it was negative. Imodium as needed was started and patient's symptoms are of diarrhea has greatly improved since. IV fluid was also started and patient's BUN creatinine ratio, as well as serum creatinine has both improved by the next day. Patient felt much better the next day and reached clinical stability. As such, the decision was made to discharge home with prescriptions of Imodium given to her. 2 weeks PCP follow-up appointment made for the patient. All questions were answered prior to patient being physically discharged. Patient recovered much faster than expected. EXAM Constitutional Vitals: Temp Pulse Resp BP Pulse Ox 35.9 C L 82 18 100/66 98 05/23/21 08:00 05/23/21 08:00 05/23/21 08:00 05/23/21 08:00 05/23/21 08:00 General appearance: cooperative and no acute distress Head Head exam: Present atraumatic and normocephalic Eye Eye exam: Present EOMI and PERRL ENT ENT exam: Present mucous membranes moist, normal exam and normal external ear exam Additional comments: bilateral hard of hearing Neck Neck exam: Present normal inspection; Absent lymphadenopathy, tenderness and thyromegaly Respiratory Respiratory exam: Absent accessory muscle use, respiratory distress and wheezes Cardiovascular Cardiovascular exam: Present normal rate and rhythm; Absent JVD GI/Abdominal GI/Abdominal exam: Present normal bowel sounds and soft; Absent organomegaly and tenderness Extremities Exam Extremities exam: Present full ROM, normal capillary refill and normal inspection; Absent tenderness Neurological Exam Neurological exam: Present alert, CN II-XII intact and oriented X3; Absent motor sensory deficit Psychiatric Psychiatric exam: Present normal affect and normal mood; Absent anxious and depressed Skin Skin exam: Present dry and intact Discharge Data Data Completed and Pending Labs on day of discharge: Labs from last 24 hours 05/23/21 05/23/21 05/22/21 05:11 05:10 11:48 WBC 6.2 8.4 RBC 3.16 L 3.28 L Hgb 9.9 L 10.4 L Hct 29.9 L 29.6 L POC Hct MCV 94.6 90.2 MCH 31.3 31.7 MCHC 33.1 35.1 RDW 13.6 13.1 Plt Count 346 360 MPV 8.9 9.1 Neut % (Auto) 76.2 85.4 H Lymph % (Auto) 17.0 9.9 L Mcduffie % (Auto) 5.8 4.5 Eos % (Auto) 0.8 0 Baso % (Auto) 0.2 0.2 Lymph # (Auto) 1.05 L 0.83 L Mcduffie # (Auto) 0.36 0.38 Eos # (Auto) 0.05 0 Baso # (Auto) 0.01 0.02 Absolute Neutrophils 4.70 7.17 POC Sodium Sodium 132 L POC Potassium Potassium 4.8 POC Chloride Chloride 108 Carbon Dioxide 14 L POC Total CO2 Anion Gap 10.0 POC BUN BUN 55 H Creatinine 0.9 POC Creatinine GFR Calculation 58 Glucose 88 POC Glucose Calcium 8.6 POC WB Ioniz Calcium 05/22/21 11:26 WBC RBC Hgb Hct POC Hct 31 L MCV MCH MCHC RDW Plt Count MPV Neut % (Auto) Lymph % (Auto) Mcduffie % (Auto) Eos % (Auto) Baso % (Auto) Lymph # (Auto) Mcduffie # (Auto) Eos # (Auto) Baso # (Auto) Absolute Neutrophils POC Sodium 128 L Sodium POC Potassium 4.5 Potassium POC Chloride 99 Chloride Carbon Dioxide POC Total CO2 17 L Anion Gap POC BUN 108 H* BUN Creatinine POC Creatinine 2.0 H GFR Calculation Glucose POC Glucose 164 H Calcium POC WB Ioniz Calcium 1.28 Discharge Plan Patient/Caregiver Discharge Instructions Activity: increase activity as tolerated Diet: Renal Prescriptions: New loperamide [Imodium A-D] 2 mg capsule 2 mg PO QID PRN (Reason: loose stool) Qty: 20 RF: 0 Continued metoprolol succinate 25 MG tablet extended release 24 hr 25 mg PO DAILY RF: 0 omeprazole 20 MG capsule,delayed release(DR/EC) 1 tab PO DAILY RF: 0 lisinopril [Zestril] 20 MG tablet 20 mg PO DAILY RF: 0 amlodipine 5 MG tablet 5 mg PO DAILY RF: 0 Eliquis 5 MG tablet 5 mg PO BID RF: 0 spironolactone 25 MG tablet 25 mg PO ONCE RF: 0 Milltrium Senior 1 EACH tablet 1 ea PO DAILY RF: 0 Follow Up Plan Patient Disposition: Home, Self-Care Prognosis: Fair Rehab Potential: Good I certify that the patient requires SNF services: No Overall status at discharge: patient is back to baseline Discharge Orders: Discharge Order (Routine); Ordered 05/23/21 Ordered By: Josemanuel MCHUGH VTE Deep Vein Thrombosis/Pulmonary Embolism Present on Admission: Yes
== END 2021-05-23 13:40 | disposition home or self-care (01) | DRG 392 ==
LOC: ED 10:22 → MEDSUR 14:15
PROVIDERS: ADMIT Internal Medicine; ATTEND Internal Medicine